=== PATIENT | male | born 1945 | race Caucasian/White ===

== ENCOUNTER 2018-04-25 10:38 | Inpatient (IN) ==
--- NOTE | 2018-04-25 11:04 | Emergency Department Note ---
Disposition Clinical Impression: Generalized weakness, Acute kidney injury, Hyperkalemia GI bleed Qualifiers: GI bleed type/associated pathology: unspecified gastrointestinal hemorrhage type Qualified Code(s): K92.2 - Gastrointestinal hemorrhage, unspecified Headache Qualifiers: Headache type: unspecified Headache chronicity pattern: unspecified pattern Anemia Qualifiers: Anemia type: unspecified type Qualified Code(s): D64.9 - Anemia, unspecified Disposition: Admitted As Inpatient Condition: Fair Time of Disposition: 14:04 General Adult HPI - General Chief complaint: ED Headache Stated complaint: YEPEZ everyday/AMS Time Seen by Provider: 04/25/18 10:45 Source: patient, family Mode of arrival: ambulatory Limitations: altered mental status Nursing Notes Reviewed: Yes Vital Signs Reviewed: Yes - History of Present Illness HPI Narrative: 72 year old man with hx significant for dm, afib not anticoagulated due to prior esophageal bleed, pacemaker, and hypothyroidism who presented to the ED complaining of headache and AMS. He fell 6-8 weeks ago and hit his head but was never evaluated. Over the last 3 weeks family has noticed a change in his mental status. says he has had memory trouble, saying things that sometimes do not make sense, and would take the wrong medications if she let him dose his own meds. Previous to this he was able to do more things independently. He himself complains of a bilateral YEPEZ that he described as band like pressure that is intermittent. He denies any fever/chills, diplopia, blurry vision, presyncope/syncope, chest pain, SOB, N/V, abdominal pain, muscle weakness, numbness/paresthesias, dysuria, increased urinary frequency, or urgency, but did endorse occasional dizziness, more when sitting to standing. He was very preoccupied during hx with showing me his R hand and arm where he has had previous injuries. Pt Subjective Complaint: headache Onset (ago): day(s) Location: head Radiation: non-radiation Pain Severity: moderate Pain Scale: 5 Quality: other (band like pressure ) Consistency: intermittent Improves with: other (time) Worsens with: nothing Associated symptoms: Reports: confusion Treatments Prior to Arrival: none - Related Data Home Medications Medication Instructions Recorded Confirmed Aspirin Enteric Coated [Aspirin EC] 81 mg PO DAILY 07/10/15 04/25/18 Furosemide [Lasix] 40 mg PO BID 07/10/15 04/25/18 Levothyroxine [Synthroid] 125 mcg PO 0630 07/10/15 04/25/18 Lisinopril [Zestril] 5 mg PO DAILY 07/10/15 04/25/18 Metformin HCl [Glucophage] 1,000 mg PO DAILY 07/10/15 04/25/18 Metoprolol [Lopressor] 25 mg PO BID 07/10/15 04/25/18 Potassium Chloride 20 meq PO BID 07/10/15 04/25/18 Spironolactone [Aldactone] 50 mg PO DAILY 07/10/15 04/25/18 Pantoprazole Sodium [Protonix] 40 mg PO DAILY 01/26/17 04/25/18 Albuterol Sulfate [Proair Hfa] 1 puff IH Q4H PRN 02/24/17 04/25/18 Cholecalciferol (D-3) [Vitamin D] 1,000 unit PO DAILY 02/24/17 04/25/18 Ferrous Sulfate [Iron] 325 mg PO BID 02/24/17 04/25/18 Sertraline [Zoloft] 50 mg PO DAILY 04/25/18 04/25/18 Allergies Allergy/AdvReac Type Severity Reaction Status Date / Time No Known Allergies Allergy Verified 04/25/18 10:43 All systems ED: reviewed and negative except as stated. Past Medical History - Past Medical History Medical history: Reports: arthritis, asthma, cirrhosis, CHF, COPD, coronary artery disease, DVT, diabetes, hypertension, liver disease, myocardial infarction, renal disease, thyroid disease Surgical history: Reports: cataract, herniorrhaphy, orthopedic, other, pacemaker /AICD Psychiatric history: Reports: no psych history - Social History Smoking Status: Never smoker Smokeless Tobacco Status: No Alcohol use: Reports: none Drug use: Reports: none Physical Exam - General Limitations: altered mental status General appearance: alert, in no apparent distress - Head Head exam: atraumatic, normocephalic, normal inspection - Eye Eye exam: Present: normal appearance, EOMI - ENT ENT exam: mucous membranes moist - Neck Neck exam: Present: normal inspection, trachea midline - Chest Chest inspection: Present: normal inspection, symmetric chest wall rise - Respiratory Respiratory exam: Present: normal lung sounds bilaterally - Cardiovascular Cardiovascular exam: Present: regular rate, irregular rhythm, normal heart sounds, +S1, +S2 - Abdominal Exam Abdominal exam: Present: soft, Non-Tender. Absent: distention, guarding, rebound, rigidity - Neurological Exam Neurological exam: Present: alert, CN II-XII intact. Absent: oriented X3 ( oriented to place but not person/time) - Psychiatric Psychiatric exam: Present: normal affect - Skin Skin exam: Present: warm, dry, intact, normal color Course Course Narrative: He presented to ED complaining of headache and reporting new memory problems over the last 3 weeks. His headache is in a pattern consistent with a tension YEPEZ being bilateral, band like pain that is intermittent. He has not taken anything otc and says he is not able to take nsaids due to prior esophageal bleed. He is alert but only oriented to place at this time. No other complaints with ROS besides the YEPEZ. Will work up potential infectious sources of AMS at this point and give a bolus IV fluids as he indicated dizziness in an orthostatic pattern and low end BP on arrival. Also will get CT head and neck as his previous fall/head injury was not evaluated and now with progressing AMS and memory deficits. 1130: ECG afib, rate 62, v rate 56-67, st depression v5,6, I and avl, prolonged qrs 135. 1300: Hgb 7.8, hct 24, plt 93, K 6, hco3 18, Cr 2.81, occult blood pos without gross blood on test. Will start 2 units PRBC's given his symptomatic anemia with pos occult blood, HONEY and iv protonix, give bicarb, kayexalate, and ca gluconate now with hyperkalemia, K 6. CT head without intracranial abnormality, CT neck multilevel DDD most severe at c6/c7. 1350: Spoke to hospitalist service about admission to hospital and they have accepted. Vital Signs Temperature 98.2 F 04/25/18 10:41 Pulse Rate 72 04/25/18 10:41 Respiratory Rate 18 04/25/18 10:41 Blood Pressure 109/63 04/25/18 10:41 O2 Sat by Pulse Oximetry 97 04/25/18 10:41 Temperature 98.2 F 04/25/18 14:37 Pulse Rate 71 04/25/18 14:37 Respiratory Rate 18 04/25/18 14:37 Blood Pressure 117/62 04/25/18 14:37 O2 Sat by Pulse Oximetry 97 04/25/18 14:37 Oxygen Delivery Oxygen Delivery Room Air Medical Decision Making - Medical Records Medical records reviewed: Yes I reviewed the patient's medical records. - Lab Data Lab results reviewed: Yes I reviewed the patient's lab results. Result diagrams: 04/25/18 10:54 04/25/18 10:54 Lab Results 04/25/18 04/25/18 04/25/18 Range/Units 10:54 10:54 10:54 WBC 6.0 (4.3-11.1) K/mcL RBC 2.37 L (4.19-5.50) M/mcL Hgb 7.8 L (12.9-16.9) g/dL Hct 24.0 L (37.5-50.1) % MCV 101.3 H (83.0-100.0) fL MCH 32.9 (28.0-33.3) pg MCHC 32.5 (31.6-35.5) g/dL RDW 14.6 H (11.5-14.5) % Plt Count 93 L (140-400) K/mcL MPV 9.5 (9.4-12.4) fL Immature Gran % 0.5 (0-4) % Seg Neutrophils % 77.4 % Lymphocytes % 12.9 % Monocytes % 8.3 % Eosinophils % 0.7 % Basophils % 0.2 % Neutrophils # 4.6 (1.6-8.9) K/mcL Lymphocytes # 0.8 (0.6-4.6) K/mcL Monocytes # 0.5 (0.0-1.3) K/mcL Eosinophils # 0.0 (0.0-0.6) K/mcL Basophils # 0.0 (0.0-0.2) K/mcL Immature Plt Fraction 1.7 (1.1-6.1) % PT 12.6 H (9.4-12.1) Seconds INR 1.1 APTT 28.0 (26.0-36.0) Seconds VBG pH (7.32-7.42) pH Units VBG pCO2 (41-51) mmHg VBG pO2 (25-50) mmHg VBG HCO3 (21-27) mEq/L Sodium 135 L (136-145) mEq/L Potassium 6.0 H (3.5-5.1) mEq/L Chloride 110 H (98-107) mEq/L Carbon Dioxide 18 L (23-29) mEq/L BUN 49 H (8-23) mg/dL Creatinine 2.81 H (0.70-1.30) mg/dL Est GFR ( Amer) 27 L (> 60) Est GFR (Non-Af Amer) 22 L (> 60) BUN/Creatinine Ratio 17 (6-26) Glucose 118 H (70-105) mg/dL Calculated Osmolality 294 (280-300) Lactic Acid (0.5-2.2) mmol/L Calcium 9.0 (8.6-10.3) mg/dL Total Bilirubin 0.9 (0.3-1.0) mg/dL Direct Bilirubin 0.2 (0.0-0.2) mg/dL Indirect Bilirubin 0.7 (0.0-1.2) mg/dL AST 25 (13-39) Units/L ALT 15 (7-52) Units/L Alkaline Phosphatase 61 (34-104) Units/L Troponin I < 0.03 (< 0.04) ng/mL Serum Total Protein 5.7 L (6.4-8.9) g/dL Albumin 3.3 L (3.5-5.7) g/dL Globulin 2.4 (2.4-3.5) g/dL Albumin/Globulin Ratio 1.4 (1.1-2.2) TSH 1.511 (0.340-5.600) mcIU/mL Urine Color (Yellow) Urine Clarity (Clear) Urine pH (5.0-8.0) pH Units Ur Specific [place] (1.010-1.025) Urine Protein (Neg-Trace) mg/dL Urine Glucose (UA) (Normal) mg/dL Urine Ketones (Negative) mg/dL Urine Blood (Negative) Urine Nitrite (Negative) Urine Bilirubin (Negative) Urine Urobilinogen (Normal) mg/dL Ur Leukocyte Esterase (Negative) Ur Culture Indicated? (NO) Stool Occult Bld Scrn (Negative) Urine Opiates Screen (Aaokjk=919) ng/mL Ur Barbiturates Screen (Nwrgua=798) ng/mL Ur Phencyclidine Scrn (Cutoff=25) ng/mL Ur Amphetamines Screen (Ppijhr=9374) ng/mL U Benzodiazepines Scrn (Zrwceh=220) ng/mL Urine Cocaine Screen (Cutoff= 300) ng/mL U Marijuana (THC) Screen (Cutoff = 50) ng/mL Ur Drug Screen Interp Ethyl Alcohol < 10 (Less than 10) mg/dL Blood Type Antibody Screen Crossmatch 04/25/18 04/25/18 04/25/18 Range/Units 11:41 12:25 12:50 WBC (4.3-11.1) K/mcL RBC (4.19-5.50) M/mcL Hgb (12.9-16.9) g/dL Hct (37.5-50.1) % MCV (83.0-100.0) fL MCH (28.0-33.3) pg MCHC (31.6-35.5) g/dL RDW (11.5-14.5) % Plt Count (140-400) K/mcL MPV (9.4-12.4) fL Immature Gran % (0-4) % Seg Neutrophils % % Lymphocytes % % Monocytes % % Eosinophils % % Basophils % % Neutrophils # (1.6-8.9) K/mcL Lymphocytes # (0.6-4.6) K/mcL Monocytes # (0.0-1.3) K/mcL Eosinophils # (0.0-0.6) K/mcL Basophils # (0.0-0.2) K/mcL Immature Plt Fraction (1.1-6.1) % PT (9.4-12.1) Seconds INR APTT (26.0-36.0) Seconds VBG pH (7.32-7.42) pH Units VBG pCO2 (41-51) mmHg VBG pO2 (25-50) mmHg VBG HCO3 (21-27) mEq/L Sodium (136-145) mEq/L Potassium (3.5-5.1) mEq/L Chloride (98-107) mEq/L Carbon Dioxide (23-29) mEq/L BUN (8-23) mg/dL Creatinine (0.70-1.30) mg/dL Est GFR ( Amer) (> 60) Est GFR (Non-Af Amer) (> 60) BUN/Creatinine Ratio (6-26) Glucose (70-105) mg/dL Calculated Osmolality (280-300) Lactic Acid 2.0 (0.5-2.2) mmol/L Calcium (8.6-10.3) mg/dL Total Bilirubin (0.3-1.0) mg/dL Direct Bilirubin (0.0-0.2) mg/dL Indirect Bilirubin (0.0-1.2) mg/dL AST (13-39) Units/L ALT (7-52) Units/L Alkaline Phosphatase (34-104) Units/L Troponin I (< 0.04) ng/mL Serum Total Protein (6.4-8.9) g/dL Albumin (3.5-5.7) g/dL Globulin (2.4-3.5) g/dL Albumin/Globulin Ratio (1.1-2.2) TSH (0.340-5.600) mcIU/mL Urine Color Yellow (Yellow) Urine Clarity Clear (Clear) Urine pH 5.5 (5.0-8.0) pH Units Ur Specific [place] 1.010 (1.010-1.025) Urine Protein Negative (Neg-Trace) mg/dL Urine Glucose (UA) Normal (Normal) mg/dL Urine Ketones Negative (Negative) mg/dL Urine Blood Negative (Negative) Urine Nitrite Negative (Negative) Urine Bilirubin Negative (Negative) Urine Urobilinogen Normal (Normal) mg/dL Ur Leukocyte Esterase Negative (Negative) Ur Culture Indicated? NO (NO) Stool Occult Bld Scrn (Negative) Urine Opiates Screen (Oczeht=687) ng/mL Ur Barbiturates Screen (Nwwnnc=214) ng/mL Ur Phencyclidine Scrn (Cutoff=25) ng/mL Ur Amphetamines Screen (Dxcfve=5389) ng/mL U Benzodiazepines Scrn (Hvducq=498) ng/mL Urine Cocaine Screen (Cutoff= 300) ng/mL U Marijuana (THC) Screen (Cutoff = 50) ng/mL Ur Drug Screen Interp Ethyl Alcohol (Less than 10) mg/dL Blood Type A POSITIVE Antibody Screen NEGATIVE Crossmatch See Detail 04/25/18 04/25/18 04/25/18 Range/Units 12:50 13:04 13:51 WBC (4.3-11.1) K/mcL RBC (4.19-5.50) M/mcL Hgb (12.9-16.9) g/dL Hct (37.5-50.1) % MCV (83.0-100.0) fL MCH (28.0-33.3) pg MCHC (31.6-35.5) g/dL RDW (11.5-14.5) % Plt Count (140-400) K/mcL MPV (9.4-12.4) fL Immature Gran % (0-4) % Seg Neutrophils % % Lymphocytes % % Monocytes % % Eosinophils % % Basophils % % Neutrophils # (1.6-8.9) K/mcL Lymphocytes # (0.6-4.6) K/mcL Monocytes # (0.0-1.3) K/mcL Eosinophils # (0.0-0.6) K/mcL Basophils # (0.0-0.2) K/mcL Immature Plt Fraction (1.1-6.1) % PT (9.4-12.1) Seconds INR APTT (26.0-36.0) Seconds VBG pH 7.31 L (7.32-7.42) pH Units VBG pCO2 38 L (41-51) mmHg VBG pO2 147 H (25-50) mmHg VBG HCO3 19 L (21-27) mEq/L Sodium (136-145) mEq/L Potassium (3.5-5.1) mEq/L Chloride (98-107) mEq/L Carbon Dioxide (23-29) mEq/L BUN (8-23) mg/dL Creatinine (0.70-1.30) mg/dL Est GFR ( Amer) (> 60) Est GFR (Non-Af Amer) (> 60) BUN/Creatinine Ratio (6-26) Glucose (70-105) mg/dL Calculated Osmolality (280-300) Lactic Acid (0.5-2.2) mmol/L Calcium (8.6-10.3) mg/dL Total Bilirubin (0.3-1.0) mg/dL Direct Bilirubin (0.0-0.2) mg/dL Indirect Bilirubin (0.0-1.2) mg/dL AST (13-39) Units/L ALT (7-52) Units/L Alkaline Phosphatase (34-104) Units/L Troponin I (< 0.04) ng/mL Serum Total Protein (6.4-8.9) g/dL Albumin (3.5-5.7) g/dL Globulin (2.4-3.5) g/dL Albumin/Globulin Ratio (1.1-2.2) TSH (0.340-5.600) mcIU/mL Urine Color (Yellow) Urine Clarity (Clear) Urine pH (5.0-8.0) pH Units Ur Specific [place] (1.010-1.025) Urine Protein (Neg-Trace) mg/dL Urine Glucose (UA) (Normal) mg/dL Urine Ketones (Negative) mg/dL Urine Blood (Negative) Urine Nitrite (Negative) Urine Bilirubin (Negative) Urine Urobilinogen (Normal) mg/dL Ur Leukocyte Esterase (Negative) Ur Culture Indicated? (NO) Stool Occult Bld Scrn Positive A (Negative) Urine Opiates Screen Negative (Vtzadc=855) ng/mL Ur Barbiturates Screen Negative (Jxdwfl=597) ng/mL Ur Phencyclidine Scrn Negative (Cutoff=25) ng/mL Ur Amphetamines Screen Negative (Gnikgo=4453) ng/mL U Benzodiazepines Scrn Negative (Bjotaz=075) ng/mL Urine Cocaine Screen Negative (Cutoff= 300) ng/mL U Marijuana (THC) Screen Negative (Cutoff = 50) ng/mL Ur Drug Screen Interp See Below Ethyl Alcohol (Less than 10) mg/dL Blood Type Antibody Screen Crossmatch Critical Care Time Critical Care Time: Yes Total Critical Care Time: 35 Attestation: The high probability of a clinically significant, sudden or life threatening deterioration of the [CV] system(s) required my full and direct attention, intervention and personal management. The aggregate critical care time was [35] minutes. This time is in addition to time spent performing reported procedures but includes the following: [x] Data Review and interpretation [x] Patient assessment and monitoring of vital signs [x] Documentation [x] Medication orders and management Attestation Statement - Attestation Attestation: I examined this patient and my medical decision-making was reviewed with the Resident Physician, Dr. Shannon. I agree with the documented findings, disposition and treatment plan as described except to the extent set forth below. Patient is a 72-year-old white male with numerous medical problems including CHF , COPD, diabetes, hypertension, prior esophageal varices with bleeding requiring transfusion, who presents to the emergency Department with complaints of generalized weakness over the past 4-5 days and gradually worsened mild generalized headache and "" not feeling well area. Patient denies any chest pain pressure or heaviness, no shortness of breath, dizziness or room spinning sensation, no syncopal episodes. Patient denies any bright red blood per rectum and states his stools are always dark because he is on iron supplement. Patient denies any abdominal pain. I agree with patient's physical exam findings as documented. Vital signs are stable. Patient's hemoglobin came back significantly lower than his baseline, we followed this up with a rectal exam which was negative for gross blood but positive Hemoccult. Patient does have a history of bleeding varices but at the time of this prior issues on blood thinners for his A. fib. These have since been discontinued. Patient denies any hemoptysis or hematemesis. Patient's been hemodynamically stable throughout. MCV is within normal limits. Patient' s also with acute kidney injury and hyperkalemia. EKG does not show any changes consistent with an elevated potassium but he was treated with calcium Kayexalate and bicarbonate due to his metabolic acidosis. Patient's imaging studies are within normal limits. Patient is been typed and screened and blood transfusion is being initiated following informed consent. Patient has remained hemodynamically stable and in no acute distress. Patient will be admitted for blood loss anemia possible GI bleed, acute kidney injury and hyperkalemia. Hospitalist has been notified and accepted the patient for admission for further evaluation and management.
[2018-04-25] MEDS ORDERED: 0.9 % Sodium Chloride 500 ML IVC ONE (11:19)
[2018-04-25 11:29] LABS: Hemoglobin 7.8 g/dL (12.9-16.9)
[2018-04-25 11:31] LABS: Basophils % 0.2 %; Eosinophils % 0.7 %; Immature Granulocytes % 0.5 % (0-4); Immature Platelets 1.7 % (1.1-6.1); Lymphocytes # 0.8 K/mcL (0.6-4.6); Lymphocytes % 12.9 %; Mean Corpuscular HGB Conc 32.5 g/dL (31.6-35.5); Mean Corpuscular Hemoglobin 32.9 pg (28.0-33.3); Mean Corpuscular Volume 101.3 fL (83.0-100.0); Mean Platelet Volume 9.5 fL (9.4-12.4); Monocytes # 0.5 K/mcL (0.0-1.3); Monocytes % 8.3 %; Red Blood Count 2.37 M/mcL (4.19-5.50); Red Cell Distribution Width 14.6 % (11.5-14.5); Segmented Neutrophils % 77.4 %
[2018-04-25 11:36] LABS: INR 1.1; Prothrombin Time 12.6 Seconds (9.4-12.1)
[2018-04-25 11:40] LABS: Neutrophils # 4.6 K/mcL (1.6-8.9); Platelet Count 93 K/mcL (140-400)
[2018-04-25 11:58] LABS: Troponin I < 0.03 ng/mL (< 0.04)
[2018-04-25 12:10] LABS: Alanine Aminotransferase 15 Units/L (7-52); Albumin 3.3 g/dL (3.5-5.7); Albumin/Globulin Ratio 1.4 (1.1-2.2); Alkaline Phosphatase 61 Units/L (34-104); Aspartate Amino Transferase 25 Units/L (13-39); BUN/Creatinine Ratio 17 (6-26); Bilirubin,Direct 0.2 mg/dL (0.0-0.2); Bilirubin,Indirect 0.7 mg/dL (0.0-1.2); Bilirubin,Total 0.9 mg/dL (0.3-1.0); Blood Urea Nitrogen 49 mg/dL (8-23); Carbon Dioxide 18 mEq/L (23-29); Chloride 110 mEq/L (98-107); Ethanol < 10 mg/dL (Less than 10); Globulin 2.4 g/dL (2.4-3.5); Glucose 118 mg/dL (70-105); Osmolality,Calculated 294 (280-300); Sodium 135 mEq/L (136-145); Total Protein 5.7 g/dL (6.4-8.9); eGFR For Non-African Americans 22 (> 60)
[2018-04-25 12:11] LABS: Thyroid Stimulating Hormone 1.511 mcIU/mL (0.340-5.600)
[2018-04-25] MEDS ORDERED: Sodium Bicarbonate 50 MEQ/50 ML VIAL IVP ONE (12:28)
[2018-04-25 12:59] LABS: Bilirubin,Urine Negative (Negative); Blood,Urine Negative (Negative); Clarity,Urine Clear (Clear); Color,Urine Yellow (Yellow); Glucose,Urine (UA) Normal (Normal); Ketones,Urine Negative (Negative); Leukocyte Esterase,Urine Negative (Negative); Nitrite,Urine Negative (Negative); PH,Urine 5.5 pH Units (5.0-8.0); Protein,Urine Negative (Neg-Trace); Urobilinogen,Urine Normal (Normal)
[2018-04-25 13:09] LABS: Amphetamine Screen,Urine Negative ng/mL (Cutoff=1000); Barbiturate Screen,Urine Negative ng/mL (Cutoff=200); Benzodiazepines Screen,Urine Negative ng/mL (Cutoff=200); Cannabinoid Screen,Urine Negative ng/mL (Cutoff = 50); Cocaine Screen,Urine Negative ng/mL (Cutoff= 300); Opiate Screen,Urine Negative ng/mL (Cutoff=300); Phencyclidine Screen,Urine Negative ng/mL (Cutoff=25)
[2018-04-25] MEDS ORDERED: Pantoprazole 40 MG VIAL IVP ONE (13:18)
[2018-04-25 13:54] LABS: VBG HCO3 19 mEq/L (21-27); VBG PCO2 38 mmHg (41-51); VBG PH 7.31 pH Units (7.32-7.42); VBG PO2 147 mmHg (25-50)
[2018-04-25] MEDS ORDERED: 0.9 % Sodium Chloride 250 ML ONE ×2 (14:19→17:03)
[2018-04-25] MEDS ORDERED: Naloxone 0.4 MG/ML INJ IVP PRN (15:09)
--- NOTE | 2018-04-25 16:51 | Internal Med History&Physical ---
Date of Encounter: 04/25/18 Time of Encounter: 16:45 Internal Medicine - H&P: HPI Chief complaint: headache Admitted From: Home Plans for Post Hospital Care: Home History of present illness: Mr. Díaz is a 72 year old male with past medical history of diastolic CHF, COPD, diabetes, hypertension, A. fib not on anticoagulation, pacemaker placement , hypothyroidism, nonalcoholic cirrhosis, diabetic neuropathy who came in with complain of headache ongoing past 2-3 days. Most of the history was obtained through was at bedside and reliable as well as review of previous charts and ER chart. He also has associated weakness and not feeling well. Denies any other complain then headache and weakness. Headache is bandlike around his head. Denies any weakness numbness or tingling. He has difficulty hearing at baseline. Denies any vision changes. He had history of fall about a month ago which was not evaluated. Denies any fevers, chills, lightheadedness, palpitations, bowel or bladder complaints. He has been urinating as usual. Denies any problems passing urine. He is on iron supplementation and has black stool associated with that he usually. Denies any blood in stool. Denies any chest pain, shortness of breathor abdominal pain. He has chronic long-standing back pain which is at baseline. Patient's mentioned that 5 bands in his esophagus. He had upper endoscopy in March. His last colonoscopy was about 2 years ago. On initial evaluation in ER head CT was negative. Chest x-ray was unremarkable. Cervical spine x-ray showed degenerative changes. Lab was significant for anemia of 7.8 from baseline of 10.4, platelet count of 93, potassium of 6 urine 49 creatinine of 2.8. INR within normal range. His stool occult blood was positive. UA was unremarkable. U tox was unremarkable. EKG without any signs of hyperkalemia. Patient received Kayexalate, 500 mL normal saline, bicarbonate, calcium gluconate and pantoprazole. Was also started on PRBC transfusion. Patient was admitted under hospitalist service for further management. On interview patient is alert awake and oriented. Difficulty with hearing however answering questions appropriately with the help of his . Following commands. Only complaint he had was headache. Past Med Surg Social Fam HX - Past Medical History Medical history: arthritis, asthma, cirrhosis, CHF, COPD, coronary artery disease, DVT, diabetes, hypertension, liver disease, myocardial infarction, renal disease, thyroid disease Additional medical history: esophageal varices, sleep apnea, anemia, pacemaker, rheumatic fever Psychiatric history: no psych history - Past Surgical History Surgical History: cataract, herniorrhaphy, orthopedic, other, pacemaker/AICD Additional surgical history: egd with banding, finger amputations - Social History Smoking Status: Never smoker Smokeless Tobacco Status: No Alcohol use: none Drug use: none Internal Medicine - H&P: Meds Aspirin Enteric Coated [Aspirin EC] 81 mg PO DAILY 07/10/15 [History] Furosemide [Lasix] 40 mg PO BID 07/10/15 [History] Levothyroxine [Synthroid] 125 mcg PO 0630 07/10/15 [History] Lisinopril [Zestril] 5 mg PO DAILY 07/10/15 [History] Metformin HCl [Glucophage] 1,000 mg PO DAILY 07/10/15 [History] Metoprolol [Lopressor] 25 mg PO BID 07/10/15 [History] Potassium Chloride 20 meq PO BID 07/10/15 [History] Spironolactone [Aldactone] 50 mg PO DAILY 07/10/15 [History] Pantoprazole Sodium [Protonix] 40 mg PO DAILY 01/26/17 [History] Albuterol Sulfate [Proair Hfa] 1 puff IH Q4H PRN 02/24/17 [History] Cholecalciferol (D-3) [Vitamin D] 1,000 unit PO DAILY 02/24/17 [History] Ferrous Sulfate [Iron] 325 mg PO BID 02/24/17 [History] Sertraline [Zoloft] 50 mg PO DAILY 04/25/18 [History] 3 Allergy/AdvReac Type Severity Reaction Status Date / Time No Known Allergies Allergy Verified 04/25/18 10:43 All Systems PM: A 10-system review of systems was performed and is negative for pertinent findings except as documented above in the HPI. - Constitutional Vitals: Temp Pulse Resp BP Pulse Ox 97.9 F 65 19 115/72 99 04/25/18 16:03 04/25/18 16:03 04/25/18 16:03 04/25/18 16:03 04/25/18 16:03 General appearance: Present: A&O X 3, no acute distress, obese Exam: Constitutional: Vitals as noted. Conversant. No Apparent Distress. Obese Eyes exam: Sclera white, conjunctiva clear, no lid lag, PEARLA. Pale conjunctiva. ENT exam: Decreased hearing. Dry mucus membranes. No JVD, no cervical lymphadenopathy. no thyromegaly or mass. Respiratory exam: Clear to auscultation bilaterally. No accessory muscle use, rales, rhonchi or wheezes Cardiovascular exam: irregular rhythm, +S1, +S2. systolic murmur present, no gallop, rubs. No chest wall tenderness GI/Abdominal exam: Soft, Non-tender, Non-distended, normal bowel sounds, soft, no peritoneal signs. no orgenomegaly or mass appreciated. no hernia. Musculoskeletal exam: full ROM, no atrophy or deformity noted. no edema or cyanosis, warm, pulses palpable and symmetrical in UE/LE. no calf tenderness. Neurological exam: AO X3, CN II-XII grossly intact, grossly normal motor and sensory exam. Skin exam: No skin rash, lesions or ulcers noted. no purpura or ecchymosis. Internal Med - H&P Results - Labs CBC & Chem 7: 04/25/18 10:54 04/25/18 10:54 - Assessment and plan (1) GI bleed Current Visit: Yes Status: Acute Assessment and plan: GI bleed - likely upper given history of esophageal varices. However had upper endoscopy on 04/04 and likely banding with Dr. Villalobos - Patient currently getting 2 units of PRBC - We will keep patient nothing by mouth. - Continue IV Protonix 40 twice a day. - GI service consult. Hold home aspirin. Qualifiers: GI bleed type/associated pathology: unspecified gastrointestinal hemorrhage type Qualified Code(s): K92.2 - Gastrointestinal hemorrhage, unspecified (2) Acute kidney injury Current Visit: Yes Status: Acute Assessment and plan: HONEY on CKD - Baseline creatinine of 1.5-1.9. Currently 2.8. BUN also elevated at 49 from 27. - Likely prerenal. ATN also possibility given GI bleed. Vitals are stable. - We will obtain bladder scan, renal ultrasound, urine studies including urine urea, urine sodium, urine osmolality and serum osmolality. UA unremarkable - Neohrology consulted. (3) Anemia Current Visit: Yes Status: Acute Assessment and plan: Likely from UGI bleed along cirrhosis and CKD - Management as above. Qualifiers: Anemia type: unspecified type Qualified Code(s): D64.9 - Anemia, unspecified (4) Generalized weakness Current Visit: Yes Status: Acute (5) Headache Current Visit: Yes Status: Acute Assessment and plan: - Head CT unremarkable - Etiology likely multifactorial - No focal deficit. will monitor for now. Qualifiers: Headache type: unspecified Headache chronicity pattern: unspecified pattern Qualified Code(s): R51 - Headache (6) Hyperkalemia Current Visit: Yes Status: Acute Assessment and plan: Likely from HONEY on CKD - EKG without hyperkalemic changes. - Received Kayexalate, 500 mL normal saline, bicarbonate, calcium gluconate in ER. Also getting PRBC. - f/u BMP now. If not improved will give 20 mg lasix along with albumin for diuresing to decrease potassium. - If not improving with above measures and develops EKG changes may need dialysis. (7) Cirrhosis Current Visit: No Status: Chronic Assessment and plan: - We will have to hold home spironolactone and Lasix given HONEY - Hold home potassium chloride given hyperkalemia. Qualifiers: Hepatic cirrhosis type: unspecified hepatic cirrhosis Ascites presence: unspecified Qualified Code(s): K74.60 - Unspecified cirrhosis of liver (8) HTN (hypertension) Current Visit: Yes Status: Acute Assessment and plan: - Hold home lisinopril and spironolactone given KI for now. - Currently stable. monitor for now. Qualifiers: Qualified Code(s): I10 - Essential (primary) hypertension (9) Diabetes Current Visit: Yes Status: Acute Assessment and plan: - Hold home metformin given HONEY - Sliding scale insulin with Accu-Cheks. Low intensity will be used given renal failure Qualifiers: Diabetes mellitus type: type 2 Qualified Code(s): E11.9 - Type 2 diabetes mellitus without complications; Z79.4 - nursing home (current) use of insulin (10) Hypothyroidism Current Visit: Yes Status: Acute Assessment and plan: - Continue home levothyroxine Qualifiers: Qualified Code(s): E03.9 - Hypothyroidism, unspecified (11) DVT prophylaxis Current Visit: Yes Status: Acute Assessment and plan: EPCD - Time Spent With Patient Total time spent is greater than 50% in coordination of care (as documented) at patient's floor/unit and/or counseling patient:
[2018-04-25] MEDS: Pantoprazole 40 MG VIAL IVP SCH (17:47)
[2018-04-25 22:30] LABS: Calcium 8.8 mg/dL (8.6-10.3); Potassium 4.7 mEq/L (3.5-5.1)
[2018-04-25 23:15] LABS: Sodium, Urine 83.9 mEq/L
[2018-04-25] MEDS ORDERED: 0.9 % Sodium Chloride 250 ML IVC SCH (23:45)
[2018-04-26 05:10] LABS: Basophils % 0.7 %; Immature Granulocytes % 0.3 % (0-4)
[2018-04-26 05:12] LABS: Eosinophils # 0.1 K/mcL (0.0-0.6); Eosinophils % 2.6 %; Hematocrit 26.8 % (37.5-50.1); Hemoglobin 8.7 g/dL (12.9-16.9); Immature Platelets 0.9 % (1.1-6.1); Lymphocytes # 0.7 K/mcL (0.6-4.6); Lymphocytes % 24.5 %; Mean Corpuscular HGB Conc 32.5 g/dL (31.6-35.5); Mean Corpuscular Hemoglobin 31.1 pg (28.0-33.3); Mean Corpuscular Volume 95.7 fL (83.0-100.0); Mean Platelet Volume 9.9 fL (9.4-12.4); Monocytes # 0.4 K/mcL (0.0-1.3); Monocytes % 11.9 %; Neutrophils # 1.8 K/mcL (1.6-8.9); Red Cell Distribution Width 18.3 % (11.5-14.5)
[2018-04-26 05:17] LABS: Albumin/Globulin Ratio 1.4 (1.1-2.2); Bilirubin,Total 1.4 mg/dL (0.3-1.0); Calcium 8.9 mg/dL (8.6-10.3); Globulin 2.1 g/dL (2.4-3.5); Platelet Count 60 K/mcL (140-400); Potassium 4.3 mEq/L (3.5-5.1); Total Protein 5.1 g/dL (6.4-8.9)
[2018-04-26 06:35] LABS: Platelet Estimate Decreased (Normal)
[2018-04-26 06:36] LABS: Anisocytosis 1+ (Not Present)
[2018-04-26] MEDS: Pantoprazole 40 MG VIAL IVP SCH ×2 (06:46→17:07)
[2018-04-26] MEDS ORDERED: Insulin LISPRO 300 UNITS/3 ML VIAL SQ SCH (07:30)
[2018-04-26] MEDS ORDERED: *HR* Dextrose 50 % in Water (Syg) 50 ML SYRINGE IVP PRN (07:57)
[2018-04-26] MEDS ORDERED: Dextrose Gel 15 GM/37.5 ML TUBE PO PRN ×2 (07:57)
[2018-04-26] MEDS ORDERED: D5% in Water 1,000 ML IVC PRN (07:57)
[2018-04-26] MEDS: Cholecalciferol (D-3) 1,000 UNIT TABLET PO SCH (08:54)
--- NOTE | 2018-04-26 08:57 | Electrocardiograph Report ---
[facility] Test Date: 2018-04-25 Pat Name: Leo Díaz Department: EXAM16 Room: 2A43 Gender: M Ice Skater: : 1945 Requested By: Hamilton Crockett Order Number: [id number] Reading MD: Randy Wooten Measurements Intervals [place] Rate: 62 P: SD: QRS: -34 QRSD: 135 T: 268 QT: 404 QTc: 411 Interpretive Statements Atrial fibrillation IVCD, consider atypical RBBB Nonspecific repol abnormality, lateral leads Electronically Signed On 04-26-2018 8:55:56 EDT by Randy Wooten
--- NOTE | 2018-04-26 09:16 | Internal Med Progress Note ---
Hospitalist Progress Note - Encounter Date of Encounter: 04/26/18 Time of Encounter: 09:14 - Subjective Interval History: Patient seen and examined this morning. No acute overnight events. No Bloody BM. Finished 2 PRBC. Occasionally incoherant but also has significant difficult hearing. Has a sitter due to some owning. About 400 cc urine output. Low BP overnight. - Exam Vitals: Temp Pulse Resp BP Pulse Ox 98.8 F 59 18 82/49 96 04/26/18 07:23 04/26/18 07:23 04/26/18 07:23 04/26/18 07:23 04/26/18 07:23 Exam: Constitutional: Vitals as noted. Conversant. Occasionally incoherant. No Apparent Distress. Obese Eyes exam: Sclera mildly icteric, conjunctiva clear, no lid lag, PEARLA. Pale conjunctiva. ENT exam: Decreased hearing. Dry mucus membranes. No JVD, no cervical lymphadenopathy. no thyromegaly or mass. Respiratory exam: Clear to auscultation bilaterally. No accessory muscle use, rales, rhonchi or wheezes Cardiovascular exam: irregular rhythm, +S1, +S2. systolic murmur present, no gallop, rubs. No chest wall tenderness GI/Abdominal exam: Soft, Non-tender, Non-distended, normal bowel sounds, soft, no peritoneal signs. no orgenomegaly or mass appreciated. no hernia. Musculoskeletal exam: full ROM, no atrophy or deformity noted. no edema or cyanosis, warm, pulses palpable and symmetrical in UE/LE. no calf tenderness. Neurological exam: AO X1, CN II-XII grossly intact, grossly normal motor and sensory exam. Skin exam: pigmented skin rash on lower extremity , no lesions or ulcers noted. no purpura or ecchymosis. - Assessment and Plan (1) GI bleed Current Visit: Yes Status: Acute (2) Acute kidney injury Current Visit: Yes Status: Acute (3) Anemia Current Visit: Yes Status: Acute (4) Generalized weakness Current Visit: Yes Status: Acute (5) Headache Current Visit: Yes Status: Acute (6) Hyperkalemia Current Visit: Yes Status: Acute (7) Cirrhosis Current Visit: No Status: Chronic (8) HTN (hypertension) Current Visit: Yes Status: Acute (9) Diabetes Current Visit: Yes Status: Acute (10) Hypothyroidism Current Visit: Yes Status: Acute (11) DVT prophylaxis Current Visit: Yes Status: Acute - Summary of Assessment and Plan Summary of Assessment and Plan: GI bleed - likely upper given history of esophageal varices. However had upper endoscopy on 04/04 and likely banding with Dr. Villalobos - s/p 2 units of PRBC. Hb lower than expected today with 2 PRBC. No cammie blood in stool. - We will keep patient nothing by mouth. - Continue IV Protonix 40 twice a day. - GI service consult. Hold home aspirin. HONEY on CKD - Baseline creatinine of 1.5-1.9. - renal ultrasound Unremarkable for Hydronephrosis or stones. Increased post void residual. Insert key. - f/u urine studies. UA unremarkable - Neohrology consulted. Anemia - Likely from UGI bleed along cirrhosis and CKD - Management as above. Headache - now minimal - Head CT unremarkable - Etiology likely multifactorial - No focal deficit. will monitor for now. Hyperkalemia - Likely from HONEY on CKD and medications. - EKG without hyperkalemic changes. - Received Kayexalate, 500 mL normal saline, bicarbonate, calcium gluconate in ER. Also getting PRBC. - now resolved. Cirrhosis - We will have to hold home spironolactone and Lasix given HONEY - Hold home potassium chloride given hyperkalemia. HTN - Hold home lisinopril and spironolactone given HONEY and hyperkalemia. - Low BP overnight. Will give 500 cc cautiously. - ECHO on 03/07/17 with EF of 55-60 and diastolic dysfunction. Diabetes - Hold home metformin given HONEY - Sliding scale insulin with Accu-Cheks. Low intensity will be used given renal failure Hypothyroidism - Continue home levothyroxine DVT prophylaxis - EPCD - Time Spent with Patient Total time spent is greater than 50% in coordination of care (as documented) at patient's floor/unit and/or counseling patient: Internal Medicine: Result - Labs CBC & Chem 7: 04/26/18 04:40 04/26/18 04:40 Labs: Short CBC 04/26/18 Range/Units 04:40 WBC 3.0 L (4.3-11.1) K/mcL Hgb 8.7 L (12.9-16.9) g/dL Hct 26.8 L (37.5-50.1) % Plt Count 60 L (140-400) K/mcL Neutrophils # 1.8 (1.6-8.9) K/mcL BMP 04/25/18 04/26/18 21:57 04:40 Sodium 139 141 Potassium 4.7 4.3 Chloride 113 H 112 H Carbon Dioxide 19 L 22 L BUN 48 H 45 H Creatinine 2.49 H 2.30 H Glucose 106 H 102 Calcium 8.8 8.9 Liver Function 04/26/18 Range/Units 04:40 Total Bilirubin 1.4 H (0.3-1.0) mg/dL AST 25 (13-39) Units/L ALT 13 (7-52) Units/L Alkaline Phosphatase 56 (34-104) Units/L Albumin 3.0 L (3.5-5.7) g/dL - ABG Interpretation ABG results: PT/INR, D-dimer PT 12.6 Seconds (9.4-12.1) H 04/25/18 10:54 - Impressions Impressions Retroperitoneum Ultrasound 04/25/18 20:00 IMPRESSION: Unremarkable ultrasound of the kidneys Increased postvoid bladder volume suggestive of urinary retention. D/ / Aubrey Addison MD / Aubrey Addison MD Interpreting Provider: Aubrey Addison MD Consult Discharge Plan - Plan Referrals: Jose Real DO [Primary Care Provider] - (1) GI bleed Qualifiers: GI bleed type/associated pathology: unspecified gastrointestinal hemorrhage type Qualified Code(s): K92.2 - Gastrointestinal hemorrhage, unspecified (3) Anemia Qualifiers: Anemia type: unspecified type Qualified Code(s): D64.9 - Anemia, unspecified (5) Headache Qualifiers: Headache type: unspecified Headache chronicity pattern: unspecified pattern (7) Cirrhosis Qualifiers: Hepatic cirrhosis type: unspecified hepatic cirrhosis Ascites presence: unspecified Qualified Code(s): K74.60 - Unspecified cirrhosis of liver (9) Diabetes Qualifiers: Diabetes mellitus type: type 2
[2018-04-26] MEDS ORDERED: 0.9 % Sodium Chloride 500 ML IVC ONE (09:48)
--- NOTE | 2018-04-26 11:04 | Gastroenterology Consult Note ---
<GalavizMarquis gee Kolby - Last Filed: 04/26/18 11:01> Date of Encounter: 04/26/18 Time of Encounter: 10:00 - Assessment and plan (1) Cirrhosis Current Visit: No Status: Chronic Assessment and plan: MELD-Na 17, Child-Funes class B. Last AFP 3 on 03/15/2018. Check Liver US. Lifestyle Changes: 1. Total abstinence from alcohol including social drinking. 2. No smoking. 3. Gradual loss of weight. 4. Drink at least 3 cups of coffee due to its antioxidant effects in the liver, it reduces risk of HCC and advance fibrosis. 5. If needed, use less than 2 g/day of Tylenol (in divided doses). 6. Vaccination for Hep A, B, Pneumococcus if not already received and yearly influenza vaccination by PCP. 7. Avoid NSAIDS as can cause kidney damage. 8. Avoid benzodiazepines and other sedatives such as anti-histamines, narcotics etc. as can cause encephalopathy or confusion. 9. Take a late carbohydrate meal supplement as it reduces glucose production from protein breakdown and thus improves nutrition. 10. In cirrhosis, statins are safe to use and also improve portal hypertension and decrease risk of HCC. 11. Screening: o Hepatocellular cancer screening: US of liver and AFP every 6 months Qualifiers: Hepatic cirrhosis type: unspecified hepatic cirrhosis Ascites presence: unspecified Qualified Code(s): K74.60 - Unspecified cirrhosis of liver (2) GI bleed Current Visit: Yes Status: Acute Assessment and plan: Last EGD 04/04 with esophageal varices with 5 bands placed. Gastric antral vascular ectasia also noted. Plan for EGD today for possible embolization of GAVE. Keep NPO. Qualifiers: GI bleed type/associated pathology: unspecified gastrointestinal hemorrhage type Qualified Code(s): K92.2 - Gastrointestinal hemorrhage, unspecified (3) Anemia Current Visit: Yes Status: Acute Assessment and plan: Hgb 7.8 on admission. Continue to monitor CBC and transfuse PRBC as needed. Plan for EGD today. Qualifiers: Anemia type: unspecified type Qualified Code(s): D64.9 - Anemia, unspecified - Time Spent With Patient Total time spent is greater than 50% in coordination of care (as documented) at patient's floor/unit and/or counseling patient: GI History of Present Illness - Data of Consult Patient: known to practice within the last 3 years Consult date: 04/26/18 Requesting Physician: Yrn Biswas MD - Consult Narrative Reason for consult: UGI bleed History of present illness: Mr. Díaz is a 72 year old male with PMHx of arthritis, asthma, cirrhosis, CHF , COPD, CAD, DVT, DM, HTN, TN who presented with complaints of headache and weakness that started 2-3 days prior to admission. He denies fever, chills, chest pain, shortness of breath, abdominal pain, nausea, vomiting, melena, hematochezia. Hgb on admission was 7.8, with baseline 10-11. Fecal occult blood test positive. We were consulted to evaluate his anemia and possible upper GI bleed. Procedures: EGD 04/04/2018 Dr. Villalobos: Grade II esophageal varices, five bands placed, gastric antral vascular ectasia (GAVE). EGD 05/12/2017 Dr. Villalobos: Grade II esophageal varices, five bands placed, portal hypertensive gastropathy, GAVE, three gastric polyps. EGD 06/14/2016 Dr. Villalobos: Grade II esophageal varices, three bands placed, few gastric polyps, peptic duodenitis. Colonoscopy 03/18/2015 Dr. Villalobos: Internal hemorrhoids, otherwise normal. EGD 03/18/2015 Dr. Villalobos: Grade II esophageal varices, four bands placed, portal hypertensive gastropathy. NSAIDs: ASA Anticoagulation: None Past Med Surg Social Fam HX - Past Medical History Medical history: arthritis, asthma, cirrhosis, CHF, COPD, coronary artery disease, DVT, diabetes, hypertension, liver disease, myocardial infarction, renal disease, thyroid disease Additional medical history: esophageal varices, sleep apnea, anemia, pacemaker, rheumatic fever Psychiatric history: no psych history - Past Surgical History Surgical History: cataract, herniorrhaphy, orthopedic, other, pacemaker/AICD Additional surgical history: egd with banding, finger amputations - Social History Smoking Status: Never smoker Smokeless Tobacco Status: No Alcohol use: none Drug use: none - Gastrointestinal Gastrointestinal: Present: as per HPI - Constitutional Constitutional: as per HPI - EENT Eyes: as per HPI Ears: Present: as per HPI Nose, mouth and throat: Present: as per HPI - Cardiovascular Cardiovascular ROS: Present: as per HPI - Respiratory Respiratory IM: Present: as per HPI - Genitourinary Genitourinary: Absent: change in color, Urinary frequency - Neurological ROS Neurological GI: Present: as per HPI - Hematologic/Lymphatic Hematologic/Lymphatic pediatric: Present: as per HPI - Musculoskeletal Musculoskeletal ROS GI: Present: as per HPI - Integumentary Integumentary GI: Present: as per HPI - Psychiatric ROS Psychiatric GI: Present: as per HPI - Endocrine Endocrine IM: Present: as per HPI - Constitutional Vitals: Temp Pulse Resp BP Pulse Ox 98.8 F 59 18 82/49 96 04/26/18 07:23 04/26/18 07:23 04/26/18 07:23 04/26/18 07:23 04/26/18 07:23 General appearance: Present: cooperative, A&O X 3, no acute distress, answers questions appropriately Exam: Hard of hearing - Head Head exam: Present: atraumatic, normocephalic - Eye Eye exam: Present: normal appearance, sclera anicteric - ENT ENT exam: Present: mucous membranes moist - Neck Neck exam general surgery: Present: normal inspection, trachea midline - Respiratory Respiratory exam: Present: decreased breath sounds, CTAB. Absent: rales, rhonchi - Cardiovascular Cardiovascular exam: Present: RRR, +S1, +S2 - GI/Abdominal GI/Abdominal exam: Present: soft, no peritoneal signs. Absent: distended, firm , guarding, tenderness - Rectal Rectal exam: Present: deferred - Extremities Exam Extremities exam: Present: warm - Neurological Exam Neurological exam: Present: no focal deficits - Psychiatric Psychiatric exam: Present: normal affect, normal mood - Skin Skin exam: Present: dry, intact, normal color, warm Results - Labs CBC & Chem 7: 04/26/18 04:40 04/26/18 04:40 Labs: Last Result Calcium 8.9 mg/dL (8.6-10.3) 04/26/18 04:40 Troponin I < 0.03 ng/mL (< 0.04) 04/25/18 10:54 Urine Opiates Screen Negative ng/mL (Sjisfs=477) 04/25/18 12:50 Entire Visit Hgb 8.7 g/dL (12.9-16.9) L 04/26/18 04:40 Hct 26.8 % (37.5-50.1) L 04/26/18 04:40 PT 12.6 Seconds (9.4-12.1) H 04/25/18 10:54 Total Bilirubin 1.4 mg/dL (0.3-1.0) H 04/26/18 04:40 AST 25 Units/L (13-39) 04/26/18 04:40 ALT 13 Units/L (7-52) 04/26/18 04:40 - ABG ABG results: PT/INR, D-dimer PT 12.6 Seconds (9.4-12.1) H 04/25/18 10:54 - Impressions Impressions Retroperitoneum Ultrasound 04/25/18 20:00 IMPRESSION: Unremarkable ultrasound of the kidneys Increased postvoid bladder volume suggestive of urinary retention. D/ / Aubrey Addison MD / Aubrey Addison MD Interpreting Provider: Aubrey Addison MD Consult Discharge Plan - Plan Referrals: Jose Real DO [Primary Care Provider] - <Joya Villalobos - Last Filed: 04/26/18 17:54> Date of Encounter: 04/26/18 Time of Encounter: 14:40 - Time Spent With Patient Total time spent is greater than 50% in coordination of care (as documented) at patient's floor/unit and/or counseling patient: GI History of Present Illness - Data of Consult Requesting Physician: Yrn Biswas MD - Consult Narrative History of present illness: Mr. Díaz is a 72 year old male - Constitutional Vitals: Temp Pulse Resp BP Pulse Ox 97.9 F 73 18 93/51 97 04/26/18 16:07 04/26/18 16:07 04/26/18 16:07 04/26/18 16:07 04/26/18 16:07 Results - Labs CBC & Chem 7: 04/26/18 04:40 04/26/18 04:40 Labs: Last Result Calcium 8.9 mg/dL (8.6-10.3) 04/26/18 04:40 Troponin I < 0.03 ng/mL (< 0.04) 04/25/18 10:54 Urine Opiates Screen Negative ng/mL (Xmffht=829) 04/25/18 12:50 Entire Visit Hgb 8.7 g/dL (12.9-16.9) L 04/26/18 04:40 Hct 26.8 % (37.5-50.1) L 04/26/18 04:40 PT 12.6 Seconds (9.4-12.1) H 04/25/18 10:54 Total Bilirubin 1.4 mg/dL (0.3-1.0) H 04/26/18 04:40 AST 25 Units/L (13-39) 04/26/18 04:40 ALT 13 Units/L (7-52) 04/26/18 04:40 - ABG ABG results: PT/INR, D-dimer PT 12.6 Seconds (9.4-12.1) H 04/25/18 10:54 - Impressions Impressions Retroperitoneum Ultrasound 04/25/18 20:00 IMPRESSION: Unremarkable ultrasound of the kidneys Increased postvoid bladder volume suggestive of urinary retention. D/ / Aubrey Addison MD / Aubrey Addison MD Interpreting Provider: Aubrey Addison MD - Attending Attestation I have personally performed a face to face evaluation on this patient. I have reviewed and agree with the care plan. History and Exam by me shows: Pt seen. Denies any blood in the stool. On examination; mild confused. Assessment: Patient with cirrhosis with mild encephalopathy and now anemia. Does has a history of esophageal varices and has been banded. Also has Gave syndrome of the stomach. Most probably patient anemia due to bleeding from his stomach Gave. Rec: EGD today with possible APC of the gave. Also start the patient on low- dose lactulose for his encephalopathy
[2018-04-26 12:38] LABS: Uric Acid 12.5 mg/dL (2.3-7.6)
--- NOTE | 2018-04-26 13:06 | Nephrology Consult Note ---
<Korin Carrillo - Last Filed: 04/26/18 13:03> Date of Encounter: 04/26/18 Time of Encounter: 13:03 Assessment and Plan (1) Acute kidney injury Status: Acute Baseline GFR appears to be 30-40. GFR today is 28. Strict I/O Avoid nephrotoxins and renal dose all medications. (2) Cirrhosis Status: Chronic Per GI. Qualifiers: Hepatic cirrhosis type: unspecified hepatic cirrhosis Ascites presence: unspecified Qualified Code(s): K74.60 - Unspecified cirrhosis of liver (3) GI bleed Status: Acute Per GI. On Protonix gtt. Qualifiers: GI bleed type/associated pathology: unspecified gastrointestinal hemorrhage type Qualified Code(s): K92.2 - Gastrointestinal hemorrhage, unspecified History of Present Illness - Reason for Consult Consult date: 04/26/18 Acute Kidney Injury - Chief Complaint headache - History of Present Illness Mr. Díaz is a 72 year old male with past medical history of diastolic CHF, COPD, diabetes, hypertension, A. fib not on anticoagulation, pacemaker placement, hypothyroidism, nonalcoholic cirrhosis, diabetic neuropathy who came in with complain of headache ongoing past 2-3 days. Pt c/o of headache today upon examination. is not at bedside, and patient is confused and a poor historian. Per EMR patient is not followed by a health and safety specialist. HONEY workup has been ordered. Retroperitneal US is negative. Urine studies reviewed. Serum labs ordered. Pt does not appear hypovolemic or hypervolemic on examination. Unsure if patient had poor PO intake at home or had any medication changes of recent. Baseline GFR appears to be 30-40. GFR initially was 22, now 28. Continue to hold nephro toxins. Past Med Surg Social Fam HX - Past Medical History Medical history: arthritis, asthma, cirrhosis, CHF, COPD, coronary artery disease, DVT, diabetes, hypertension, liver disease, myocardial infarction, renal disease, thyroid disease Additional medical history: esophageal varices, sleep apnea, anemia, pacemaker, rheumatic fever Psychiatric history: no psych history - Past Surgical History Surgical History: cataract, herniorrhaphy, orthopedic, other, pacemaker/AICD Additional surgical history: egd with banding, finger amputations - Social History Smoking Status: Never smoker Smokeless Tobacco Status: No Alcohol use: none Drug use: none Medications and Allergies RX: Aspirin Enteric Coated [Aspirin EC] 81 mg PO DAILY 12/18/15 [History] RX: Furosemide [Lasix] 40 mg PO BID 07/10/15 [History] RX: Levothyroxine [Synthroid] 125 mcg PO 0630 07/10/15 [History] RX: Metoprolol [Lopressor] 25 mg PO BID 07/10/15 [History] RX: Potassium Chloride 20 meq PO BID 07/10/15 [History] RX: Pantoprazole Sodium [Protonix] 40 mg PO DAILY 01/26/17 [History] RX: Albuterol Sulfate [Proair Hfa] 1 puff IH Q4H PRN 02/24/17 [History] RX: Cholecalciferol (D-3) [Vitamin D] 1,000 unit PO DAILY 02/24/17 [History] RX: Ferrous Sulfate [Iron] 325 mg PO BID 02/24/17 [History] RX: Sertraline [Zoloft] 50 mg PO DAILY 04/25/18 [History] RX: DiphenhydraMINE [Benadryl] 25 mg PO HS PRN capsule 05/07/18 [Rx] RX: Insulin LISPRO [HumaLOG] 0 units SQ HS vial 05/07/18 [Rx] RX: Insulin LISPRO [HumaLOG] 0 units SQ TIDAC vial 05/07/18 [Rx] RX: Lactulose 10 gm PO QID udc 05/07/18 [Rx] RX: Rifaximin [Xifaxan] 550 mg PO BID tablet 05/07/18 [Rx] RX: Spironolactone 50 mg PO BID #60 tablet 05/07/18 [Rx] Allergy/AdvReac Type Severity Reaction Status Date / Time No Known Allergies Allergy Verified 04/25/18 10:43 Review of Systems ROS unobtainable: due to mental status Exam - Vital Signs Vital signs: Initial Vital Signs Temp Pulse Resp BP Pulse Ox 98.2 F 72 18 109/63 97 04/25/18 10:41 04/25/18 10:41 04/25/18 10:41 04/25/18 10:41 04/25/18 10:41 Vital Signs - Last 8 Hours Temp Pulse Resp BP Pulse Ox 04/26/18 12:49 99.2 F 04/26/18 11:30 98.9 F 80 12 111/68 97 04/26/18 07:23 98.8 F 59 18 82/49 96 Intake and Output 04/25/18 04/26/18 04/26/18 23:59 07:59 15:59 Intake Total 1050 / 1050 250 / 250 Output Total 100 / 100 400 / 400 960 / 960 Balance 950 / 950 -150 / -150 -960 / -960 Intake: IV Fluids 250 / 250 0.9 % Sodium Chloride 250 ML @ 250 / 250 999 mls/hr IVC .Q16M TAYLOR Rx#: [id number] Blood Product 1050 / 1050 Rbcs Leuko Poor As-1 Unit 700 / 700 [id number] Rbcs Leuko Poor As-1 Unit 350 / 350 [id number] Output: Urine 100 / 100 400 / 400 Catheter 960 / 960 Urethral (Paulson) 500 / 500 Other: Meal NPO Weight 107.3 kg Blood Glucose* 134 105 126 - General Appearance General appearance: well-developed, well-nourished EENT: ATNC Neck: supple Respiratory: clear Cardiology: no edema, normal S1, normal S2 Gastrointestinal: normoactive bowel sounds, no tenderness, no guarding Integumentary: no rash Neurologic: confused, disoriented Psychiatric: mood/affect appropriate, cooperative Results - Lab Results 04/26/18 04:40 04/26/18 04:40 Most recent lab results Calcium 8.9 mg/dL (8.6-10.3) 04/26/18 04:40 Urine Sodium 83.9 mEq/L 04/25/18 22:50 Consult Discharge Plan - Plan Referrals: [facility] [Provider Group] (please call and schedule a hospital follow up ) Jose Real DO [Primary Care Provider] - (please follow up with the [facility] pcp) Prescriptions: RX: Spironolactone 50 mg PO BID #60 tablet <Alice Brizuela - Last Filed: 05/17/18 08:27> Assessment and Plan (1) Acute kidney injury Status: Acute (2) Cirrhosis Status: Chronic Qualifiers: Hepatic cirrhosis type: unspecified hepatic cirrhosis Ascites presence: unspecified Qualified Code(s): K74.60 - Unspecified cirrhosis of liver (3) GI bleed Status: Acute Qualifiers: GI bleed type/associated pathology: unspecified gastrointestinal hemorrhage type Qualified Code(s): K92.2 - Gastrointestinal hemorrhage, unspecified Past Med Surg Social Fam HX - Family History Father Hx Family Genitourinary Disorders: No (Denies prostate cancer) Exam - Vital Signs Vital signs: Initial Vital Signs Temp Pulse Resp BP Pulse Ox 98.2 F 72 18 109/63 97 04/25/18 10:41 04/25/18 10:41 04/25/18 10:41 04/25/18 10:41 04/25/18 10:41 Results - Lab Results 05/03/18 05:55 05/03/18 05:55 Most recent lab results Calcium 8.5 mg/dL (8.6-10.3) L 05/03/18 05:55 Urine Creatinine 125 mg/dL 04/27/18 03:13 Urine Sodium 83.9 mEq/L 04/25/18 22:50 - Attending Attestation I examined this patient and my medical decision-making was reviewed with the Resident Physician/BRANCH OFFICE ADMINISTRATOR. I agree with the documented findings, disposition and treatment plan as described except to the extent set forth below. In brief; 72 y o male with PMH of COPD, dCHF, DM and HTN admitted for headaches with renal consulted for elevated SCr from baseline. GFR initially at 22 on presentation but improving to 28. Baseline noted around 30-40. Pt unable to give much history of his renal dysfunction but it is noted no prior health and safety specialist records. Exam unremarkable except for confusion. Will initiate HONEY workup on CKD. Avoid nephrotoxins if possible. Encouraged po fluids. Will follow with you
[2018-04-26 13:08] LABS: Hepatitis B Surface Antigen Nonreactive (Nonreactive)
[2018-04-26] MEDS ORDERED: Lidocaine -MPF 2% 2 ML VIAL ONE (14:14)
[2018-04-26] MEDS ORDERED: *HR* Propofol 200 MG/20 ML VIAL IVP ONE (14:14)
--- NOTE | 2018-04-26 15:06 | Anesthesia Evaluation PreOp ---
Date of Encounter: 04/26/18 Time of Encounter: 15:04 - Past History Planned Operation: EGD Cardiac History: SC, CHF, HTN, Arrhythmia (A-Fib), Pacemaker/ICD (st [employer]'s pacemaker) Pulmonary History: Former smoker (quit 2016, smoked for 50 years), COPD MEDICAL FRONT DESK SPECIALIST History: Denies Any Significant HX Other Medical History: Hepatic (non-alcolholic cirrhosis), Renal (HONEY on CKD), Diabetes Type II, Thyroid, GERD Anesthesia History: No Prior Anesthetic Complications, Past Anesthesia Alcohol Use: none Drug use: none Medications and Allergies Aspirin Enteric Coated [Aspirin EC] 81 mg PO DAILY 07/10/15 [History] Furosemide [Lasix] 40 mg PO BID 07/10/15 [History] Levothyroxine [Synthroid] 125 mcg PO 0630 07/10/15 [History] Lisinopril [Zestril] 5 mg PO DAILY 07/10/15 [History] Metformin HCl [Glucophage] 1,000 mg PO DAILY 07/10/15 [History] Metoprolol [Lopressor] 25 mg PO BID 07/10/15 [History] Potassium Chloride 20 meq PO BID 07/10/15 [History] Spironolactone [Aldactone] 50 mg PO DAILY 07/10/15 [History] Pantoprazole Sodium [Protonix] 40 mg PO DAILY 01/26/17 [History] Albuterol Sulfate [Proair Hfa] 1 puff IH Q4H PRN 02/24/17 [History] Cholecalciferol (D-3) [Vitamin D] 1,000 unit PO DAILY 02/24/17 [History] Ferrous Sulfate [Iron] 325 mg PO BID 02/24/17 [History] Sertraline [Zoloft] 50 mg PO DAILY 04/25/18 [History] 3 Allergy/AdvReac Type Severity Reaction Status Date / Time No Known Allergies Allergy Verified 04/25/18 10:43 - Meds/Allergy Pre-op Review Medications Reviewed: Yes Allergies Reviewed: Yes Beta Blockers on Current Med List: Yes If Beta Blockers taken, Date/Time (Last Dose taken): not given last 2 days due to low BP Anesthesia Results - Labs 04/26/18 04:40 04/26/18 04:40 - Imaging EKG: report reviewed (04/25/2018 Atrial fibrillation IVCD, consider atypical RBBB Nonspecific repol abnormality, lateral leads) Additional studies: 03/07/2017 Echo Impressions: LVEF 55-60%. Indeterminate diastolic function. Mildly dilated left ventricle. Dilated RV with normal function. Mild-moderate mitral regurgitation. Mild-moderate tricuspid regurgitation. Moderate pulmonary hypertension. The IVC is dilated. Dilated coronary sinus. Anesthesia Exam Vital Signs/O2 Sat/Glucose, Most Recent Temp Pulse Resp BP Pulse Ox 99.0 F 76 18 108/41 98 04/26/18 15:06 04/26/18 15:06 04/26/18 15:06 04/26/18 15:06 04/26/18 15:06 Blood Glucose* 126 Height: 5'7''/1.7m Weight: 236 lbs/107.3 kg NPO (# of Hours): 8 Pain Scale: 0 Pain Scale Used: Numeric (1 - 10) - HEENT Pupil (Motor): EOMI Mallampati: III Teeth: Missing, Poor dentition Oral Opening: Greater than 3 - MEDICAL FRONT DESK SPECIALIST LOC: Confused - Cardiac Rhythm: Irregular Murmur: Systolic - Pulmonary Breath Sounds: bilateral Clear Respiratory Effort: Symmetrical Anesthesia Assess/Plan ASA Score: 4 Modified Roy Scale for Level of Consciousness: Cooperative, oriented, and tranquil Anesthetic Plan: MAC Monitoring Plan: Standard Monitors
[2018-04-26] MEDS: Insulin LISPRO 300 UNITS/3 ML VIAL SQ SCH ×3 (16:43→23:57)
[2018-04-26] MEDS: Lactulose Oral Soln 20 GM/30 ML UDC PO SCH ×2 (17:49→21:03)
[2018-04-26] MEDS: cefTRIAXone 1,000 MG in Water for inj. (sterile) 20 ML 10 ML IVP SCH (17:49)
[2018-04-27 02:59] LABS: Hepatitis A Antibody IgM Nonreactive (Nonreactive); Hepatitis B Core IgM Nonreactive (Nonreactive); Hepatitis C Virus Antibody Nonreactive (Nonreactive)
[2018-04-27] MEDS: Insulin LISPRO 300 UNITS/3 ML VIAL SQ SCH ×4 (06:04→21:16)
[2018-04-27] MEDS: Pantoprazole 40 MG VIAL IVP SCH (06:04)
[2018-04-27] MEDS: Cholecalciferol (D-3) 1,000 UNIT TABLET PO SCH (08:40)
[2018-04-27] MEDS: Lactulose Oral Soln 20 GM/30 ML UDC PO SCH ×2 (08:40→21:13)
[2018-04-27] MEDS: cefTRIAXone 1,000 MG in Water for inj. (sterile) 20 ML 10 ML IVP SCH (08:41)
--- NOTE | 2018-04-27 13:14 | Internal Med Progress Note ---
Hospitalist Progress Note - Encounter Date of Encounter: 04/27/18 Time of Encounter: 11:26 - Subjective Interval History: Patient seen and examined this morning. No acute overnight events. Does not offer any complains. Incoherent at times. Follows commands. - Exam Vitals: Temp Pulse Resp BP Pulse Ox 98.9 F 78 16 103/61 97 04/27/18 11:05 04/27/18 11:05 04/27/18 11:05 04/27/18 11:05 04/27/18 11:05 Exam: Constitutional: Vitals as noted. Occasionally incoherant. No Apparent Distress. Obese Eyes exam: Sclera mildly icteric, conjunctiva clear, no lid lag, PEARLA. Pale conjunctiva. ENT exam: Decreased hearing. No JVD, no cervical lymphadenopathy. no thyromegaly or mass. Respiratory exam: Clear to auscultation bilaterally. No accessory muscle use, rales, rhonchi or wheezes Cardiovascular exam: irregular rhythm, +S1, +S2. systolic murmur present, no gallop, rubs. No chest wall tenderness GI/Abdominal exam: Soft, Non-tender, Non-distended, normal bowel sounds, soft, no peritoneal signs. no orgenomegaly or mass appreciated. no hernia. Musculoskeletal exam: full ROM, no atrophy or deformity noted. no edema or cyanosis, warm, pulses palpable and symmetrical in UE/LE. no calf tenderness. Neurological exam: AO X1, CN II-XII grossly intact, grossly normal motor and sensory exam. Skin exam: pigmented skin rash on lower extremity , no lesions or ulcers noted. no purpura or ecchymosis. - Assessment and Plan (1) GI bleed Current Visit: Yes Status: Acute (2) Acute kidney injury Current Visit: Yes Status: Acute (3) Anemia Current Visit: Yes Status: Acute (4) Generalized weakness Current Visit: Yes Status: Acute (5) Headache Current Visit: Yes Status: Acute (6) Hyperkalemia Current Visit: Yes Status: Acute (7) Cirrhosis Current Visit: No Status: Chronic (8) HTN (hypertension) Current Visit: Yes Status: Acute (9) Diabetes Current Visit: Yes Status: Acute (10) Hypothyroidism Current Visit: Yes Status: Acute (11) DVT prophylaxis Current Visit: Yes Status: Acute - Summary of Assessment and Plan Summary of Assessment and Plan: GI bleed - s/p EGD with ablation of GAVE. Had colonoscopy recently which was unremarkable. - s/p 2 units of PRBC. - Resume diet. - PO PPI, Monitor H&H. - GI following. Home asprin on hold. HONEY on CKD - Baseline creatinine of 1.5-1.9. - renal ultrasound Unremarkable for Hydronephrosis or stones. Increased post void residual. Had key placed yesterday. - Improving. - Nephrology following. Urology consulted for urinary retention. Anemia - Likely from UGI bleed along cirrhosis and CKD - Management as above. Headache - now minimal - Head CT unremarkable - Etiology likely multifactorial - No focal deficit. will monitor for now. Hyperkalemia - Likely from HONEY on CKD and medications. - EKG without hyperkalemic changes. - Received Kayexalate, 500 mL normal saline, bicarbonate, calcium gluconate in ER. - now resolved. Cirrhosis - We will have to hold home spironolactone and Lasix given HONEY. - Hold home potassium chloride - Started on Ceftriaxone for GI while in hospital. HTN - lisinopril and spironolactone on hold given HONEY and hyperkalemia. - ECHO on 03/07/17 with EF of 55-60 and diastolic dysfunction. Diabetes - Hold home metformin given HONEY - Sliding scale insulin with Accu-Cheks. Low intensity will be used given renal failure Hypothyroidism - Continue home levothyroxine DVT prophylaxis - EPCD - Time Spent with Patient Total time spent is greater than 50% in coordination of care (as documented) at patient's floor/unit and/or counseling patient: Internal Medicine: Result - Labs CBC & Chem 7: 04/26/18 04:40 04/27/18 12:39 - ABG Interpretation ABG results: PT/INR, D-dimer PT 12.6 Seconds (9.4-12.1) H 04/25/18 10:54 - Impressions Impressions Liver Ultrasound 04/27/18 10:00 IMPRESSION: Cirrhosis with small abdominal ascites. No hepatic mass. D/ / Malik Mendoza MD / Malik Mendoza MD Interpreting Provider: Malik Mendoza MD Consult Discharge Plan - Plan Referrals: Jose Real DO [Primary Care Provider] - (1) GI bleed Qualifiers: GI bleed type/associated pathology: unspecified gastrointestinal hemorrhage type Qualified Code(s): K92.2 - Gastrointestinal hemorrhage, unspecified (3) Anemia Qualifiers: Anemia type: unspecified type Qualified Code(s): D64.9 - Anemia, unspecified (5) Headache Qualifiers: Headache type: unspecified Headache chronicity pattern: unspecified pattern (7) Cirrhosis Qualifiers: Hepatic cirrhosis type: unspecified hepatic cirrhosis Ascites presence: unspecified Qualified Code(s): K74.60 - Unspecified cirrhosis of liver (9) Diabetes Qualifiers: Diabetes mellitus type: type 2
[2018-04-27 13:28] LABS: Calcium 8.7 mg/dL (8.6-10.3); Potassium 4.1 mEq/L (3.5-5.1)
--- NOTE | 2018-04-27 17:44 | Urology - Consult Note ---
Date of Encounter: 04/27/18 Time of Encounter: 17:42 - Assessment and Plan (1) Incomplete bladder emptying Current Visit: Yes Status: Acute Assessment and plan: 72-year-old man with a history of incomplete bladder emptying and renal insufficiency is seen in consultation. He currently has an indwelling catheter. I think it is reasonable to continue the catheter per the primary team. He did not have any evidence for hydronephrosis and the ultrasound only showed mild incomplete emptying. I do not think that he has a post renal cause for his renal insufficiency. We will continue to monitor the creatinine. If the primary team would like to discharge him home with a catheter that is reasonable. He can follow-up in our clinic for a voiding trial. Urology will follow along, but no intervention is necessary at this time. (2) Acute kidney injury Current Visit: Yes Status: Acute Urology CN:TIM Consult date: 04/27/18 Reason for consult Urology: Other (renal failure, incomplete bladder emptying) History of present illness: 72-year-old man was admitted for altered mental status changes as well as renal insufficiency. He has a history of liver dysfunction and cirrhosis. He had a renal ultrasound which shows some incomplete bladder emptying. A Paulson catheter was placed. Nephrology and urology were both counseled him for his renal insufficiency. He denies any issues with urination. He says he has a good flow and feels that he empties well. He would like to have his catheter removed. I reviewed his ultrasound. There was no evidence of hydronephrosis. There was some mild incomplete bladder emptying. Past Med Surg Social Fam HX - Past Medical History Medical history: arthritis, asthma, cirrhosis, CHF, COPD, coronary artery disease, DVT, diabetes, hypertension, liver disease, myocardial infarction, renal disease, thyroid disease Additional medical history: esophageal varices, sleep apnea, anemia, pacemaker, rheumatic fever Psychiatric history: no psych history - Past Surgical History Surgical History: cataract, herniorrhaphy, orthopedic, other, pacemaker/AICD Additional surgical history: egd with banding, finger amputations - Social History Smoking Status: Never smoker Smokeless Tobacco Status: No Alcohol use: none Drug use: none - Family History Father Hx Family Genitourinary Disorders: No (Denies prostate cancer) Medications and Allergies Aspirin Enteric Coated [Aspirin EC] 81 mg PO DAILY 07/10/15 [History] Furosemide [Lasix] 40 mg PO BID 07/10/15 [History] Levothyroxine [Synthroid] 125 mcg PO 0630 07/10/15 [History] Lisinopril [Zestril] 5 mg PO DAILY 07/10/15 [History] Metformin HCl [Glucophage] 1,000 mg PO DAILY 07/10/15 [History] Metoprolol [Lopressor] 25 mg PO BID 07/10/15 [History] Potassium Chloride 20 meq PO BID 07/10/15 [History] Spironolactone [Aldactone] 50 mg PO DAILY 07/10/15 [History] Pantoprazole Sodium [Protonix] 40 mg PO DAILY 01/26/17 [History] Albuterol Sulfate [Proair Hfa] 1 puff IH Q4H PRN 02/24/17 [History] Cholecalciferol (D-3) [Vitamin D] 1,000 unit PO DAILY 02/24/17 [History] Ferrous Sulfate [Iron] 325 mg PO BID 02/24/17 [History] Sertraline [Zoloft] 50 mg PO DAILY 04/25/18 [History] 3 Allergy/AdvReac Type Severity Reaction Status Date / Time No Known Allergies Allergy Verified 04/25/18 10:43 Review of Systems - Constitutional no chills, no fever(s) - EENT Nose, mouth and throat: no dizziness - Cardiovascular no chest pain - Respiratory no dyspnea - Gastrointestinal no nausea, no vomiting - Genitourinary no flank pain, no hematuria - Musculoskeletal no back pain - Integumentary no erythema, no rash - Neurological no weakness - Psychiatric no suicidal ideation - Hematologic/Lymphatic no easy bleeding - Allergic/Immunologic no wheezing Exam Initial Vital Signs Temp Pulse Resp BP Pulse Ox 98.2 F 72 18 109/63 97 04/25/18 10:41 04/25/18 10:41 04/25/18 10:41 04/25/18 10:41 04/25/18 10:41 - General physical appearance Present: well developed, well nourished, no distress - Eyes Absent: icteric - ENT Present: normal nares - Neck Present: trachea midline - Respiratory Present: normal respiratory effort - Cardiovascular Cardiovascular exam IM: RRR - Abdomen Abdomen: Present: soft - Genitourinary normal penis with no external lesions, other (Paulson catheter in place.) - Integumentary Present: no rash - Neurologic Present: normal coordination - Musculoskeletal Present: other (Grossly normal) Urology Results - Labs 04/26/18 04:40 04/27/18 12:39 Abnormal lab results WBC 3.0 K/mcL (4.3-11.1) L 04/26/18 04:40 RBC 2.80 M/mcL (4.19-5.50) L 04/26/18 04:40 Hgb 8.7 g/dL (12.9-16.9) L 04/26/18 04:40 Hct 26.8 % (37.5-50.1) L 04/26/18 04:40 RDW 18.3 % (11.5-14.5) H 04/26/18 04:40 Plt Count 60 K/mcL (140-400) L 04/26/18 04:40 Platelet Estimate Decreased (Normal) L 04/26/18 04:40 Immature Plt Fraction 0.9 % (1.1-6.1) L 04/26/18 04:40 Anisocytosis 1+ (Not Present) A 04/26/18 04:40 PT 12.6 Seconds (9.4-12.1) H 04/25/18 10:54 VBG pH 7.31 pH Units (7.32-7.42) L 04/25/18 13:51 VBG pCO2 38 mmHg (41-51) L 04/25/18 13:51 VBG pO2 147 mmHg (25-50) H 04/25/18 13:51 VBG HCO3 19 mEq/L (21-27) L 04/25/18 13:51 Chloride 114 mEq/L (98-107) H 04/27/18 12:39 BUN 31 mg/dL (8-23) H 04/27/18 12:39 Creatinine 1.75 mg/dL (0.70-1.30) H 04/27/18 12:39 Est GFR ( Amer) 46 (> 60) L 04/27/18 12:39 Est GFR (Non-Af Amer) 38 (> 60) L 04/27/18 12:39 Glucose 115 mg/dL (70-105) H 04/27/18 12:39 POC Glucose 141 mg/dL (70-99) H 04/27/18 06:00 Serum Osmolality 314 mOsm/kg (280-300) H 04/25/18 17:06 Calculated Osmolality 303 (280-300) H 04/27/18 12:39 Uric Acid 12.5 mg/dL (2.3-7.6) H 04/26/18 11:43 Total Bilirubin 1.4 mg/dL (0.3-1.0) H 04/26/18 04:40 Serum Total Protein 5.1 g/dL (6.4-8.9) L 04/26/18 04:40 Albumin 3.0 g/dL (3.5-5.7) L 04/26/18 04:40 Globulin 2.1 g/dL (2.4-3.5) L 04/26/18 04:40 Stool Occult Bld Scrn Positive (Negative) A 04/25/18 13:04 Diabetes panel 04/27/18 Range/Units 12:39 Sodium 143 (136-145) mEq/L Potassium 4.1 (3.5-5.1) mEq/L Chloride 114 H (98-107) mEq/L Carbon Dioxide 26 (23-29) mEq/L BUN 31 H (8-23) mg/dL Creatinine 1.75 H (0.70-1.30) mg/dL Glucose 115 H (70-105) mg/dL Calcium 8.7 (8.6-10.3) mg/dL Calcium panel 04/27/18 Range/Units 12:39 Calcium 8.7 (8.6-10.3) mg/dL Pituitary panel 04/27/18 Range/Units 12:39 Sodium 143 (136-145) mEq/L Potassium 4.1 (3.5-5.1) mEq/L Chloride 114 H (98-107) mEq/L Carbon Dioxide 26 (23-29) mEq/L BUN 31 H (8-23) mg/dL Creatinine 1.75 H (0.70-1.30) mg/dL Glucose 115 H (70-105) mg/dL Calcium 8.7 (8.6-10.3) mg/dL Adrenal panel 04/27/18 Range/Units 12:39 Sodium 143 (136-145) mEq/L Potassium 4.1 (3.5-5.1) mEq/L Chloride 114 H (98-107) mEq/L Carbon Dioxide 26 (23-29) mEq/L BUN 31 H (8-23) mg/dL Creatinine 1.75 H (0.70-1.30) mg/dL Glucose 115 H (70-105) mg/dL Calcium 8.7 (8.6-10.3) mg/dL All other labs normal. - Imaging US - abdomen: report reviewed, image reviewed US - pelvic: report reviewed, image reviewed Consult Discharge Plan - Plan Referrals: Jose Real DO [Primary Care Provider] -
[2018-04-27 21:21] LABS: Basophils % 0.2 %; Eosinophils # 0.1 K/mcL (0.0-0.6); Eosinophils % 1.9 %; Hematocrit 29.8 % (37.5-50.1); Hemoglobin 9.7 g/dL (12.9-16.9); Immature Granulocytes % 0.2 % (0-4); Lymphocytes # 0.5 K/mcL (0.6-4.6); Mean Corpuscular HGB Conc 32.6 g/dL (31.6-35.5); Mean Corpuscular Hemoglobin 31.5 pg (28.0-33.3); Mean Corpuscular Volume 96.8 fL (83.0-100.0); Monocytes # 0.5 K/mcL (0.0-1.3); Monocytes % 11.4 %; Neutrophils # 3.2 K/mcL (1.6-8.9); Red Blood Count 3.08 M/mcL (4.19-5.50); Red Cell Distribution Width 17.2 % (11.5-14.5); Segmented Neutrophils % 75.3 %
[2018-04-27 21:22] LABS: Platelet Count 63 K/mcL (140-400)
--- NOTE | 2018-04-27 22:05 | Nephrology Progress Note ---
Date of Encounter: 04/27/18 Time of Encounter: 12:00 - Assessment and Plan (1) Acute kidney injury Current Visit: Yes Status: Acute SCr significantly improved back to baseline at 1.76, GFR 38 UOP noted at 1360cc in the past 24hrs, which is good. Pt seen by urology recommending keeping key Urine studies reviewed CPK WNL, uric acid elevated Continue to avoid nephrotoxins if possible Encouraged adequate fluids intake (2) Cirrhosis Current Visit: No Status: Chronic Per GI. Qualifiers: Hepatic cirrhosis type: unspecified hepatic cirrhosis Ascites presence: unspecified Qualified Code(s): K74.60 - Unspecified cirrhosis of liver (3) GI bleed Current Visit: Yes Status: Acute Per GI. On Protonix gtt. Hgb improved at 9.7 today Qualifiers: GI bleed type/associated pathology: unspecified gastrointestinal hemorrhage type Qualified Code(s): K92.2 - Gastrointestinal hemorrhage, unspecified Subjective Interval history: Pt seen and examined with sitter at bedside, resting comfortably. No new complaints per sitter. Objective - Vital Signs Vital signs: Vital Signs Temp Pulse Resp BP Pulse Ox 04/27/18 20:56 98.1 F 79 18 109/44 94 04/27/18 15:13 98.4 F 68 18 111/70 95 04/27/18 11:05 98.9 F 78 16 103/61 97 04/27/18 06:55 97.9 F 77 16 131/64 97 04/27/18 03:27 98.8 F 71 15 115/62 97 04/26/18 23:46 98.3 F 71 16 93/51 97 Intake and Output 04/27/18 04/27/18 04/27/18 07:59 15:59 23:59 Intake Total 300 / 300 0 / 0 265 / 265 Output Total 500 / 500 300 / 300 450 / 450 Balance -200 / -200 -300 / -300 -185 / -185 Intake: Oral 300 / 300 0 / 0 265 / 265 Output: Catheter 500 / 500 300 / 300 450 / 450 Other: Meal NPO lunch Dinner Percent of Meal Consumed 0% 100% Weight 103.4 kg Blood Glucose* 141 131 129 Patient Weight 04/27/18 23:59 Weight 103.4 kg - Lab 04/27/18 21:11 04/27/18 12:39 Most recent lab results Calcium 8.7 mg/dL (8.6-10.3) 04/27/18 12:39 Urine Creatinine 125 mg/dL 04/27/18 03:13 Urine Sodium 83.9 mEq/L 04/25/18 22:50 Consult Discharge Plan - Plan Referrals: Jose Real DO [Primary Care Provider] -
[2018-04-28 05:45] LABS: Basophils % 0.5 %; Red Blood Count 2.87 M/mcL (4.19-5.50)
[2018-04-28 05:46] LABS: Eosinophils # 0.1 K/mcL (0.0-0.6); Eosinophils % 2.6 %; Hemoglobin 8.8 g/dL (12.9-16.9); Immature Granulocytes % 0.5 % (0-4); Immature Platelets 1.4 % (1.1-6.1); Lymphocytes # 0.6 K/mcL (0.6-4.6); Lymphocytes % 13.5 %; Mean Corpuscular HGB Conc 31.4 g/dL (31.6-35.5); Mean Corpuscular Hemoglobin 30.7 pg (28.0-33.3); Mean Corpuscular Volume 97.6 fL (83.0-100.0); Mean Platelet Volume 10.2 fL (9.4-12.4); Monocytes # 0.5 K/mcL (0.0-1.3); Monocytes % 11.1 %; Segmented Neutrophils % 71.8 %
[2018-04-28 06:00] LABS: Platelet Count 56 K/mcL (140-400)
[2018-04-28 06:10] LABS: Calcium 8.3 mg/dL (8.6-10.3)
[2018-04-28] MEDS: Insulin LISPRO 300 UNITS/3 ML VIAL SQ SCH ×4 (08:52→21:44)
[2018-04-28] MEDS: Cholecalciferol (D-3) 1,000 UNIT TABLET PO SCH (08:54)
[2018-04-28] MEDS: cefTRIAXone 1,000 MG in Water for inj. (sterile) 20 ML 10 ML IVP SCH (08:55)
--- NOTE | 2018-04-28 10:15 | Internal Med Progress Note ---
Hospitalist Progress Note - Encounter Date of Encounter: 04/28/18 Time of Encounter: 10:04 - Subjective Interval History: No acute overnight events. Still incoherent at times. Follows commands. - Exam Vitals: Temp Pulse Resp BP Pulse Ox 98.4 F 67 17 92/47 97 04/28/18 04:38 04/28/18 08:00 04/28/18 08:00 04/28/18 08:00 04/28/18 08:00 Exam: Constitutional: Vitals as noted. Occasionally incoherant. No Apparent Distress. Obese Eyes exam: Sclera mildly icteric, conjunctiva clear, no lid lag, PEARLA. Pale conjunctiva. ENT exam: Decreased hearing. No JVD, no cervical lymphadenopathy. no thyromegaly or mass. Respiratory exam: Clear to auscultation bilaterally. No accessory muscle use, rales, rhonchi or wheezes Cardiovascular exam: irregular rhythm, +S1, +S2. systolic murmur present, no gallop, rubs. No chest wall tenderness GI/Abdominal exam: Soft, Non-tender, Non-distended, normal bowel sounds, soft, no peritoneal signs. no orgenomegaly or mass appreciated. no hernia. Musculoskeletal exam: full ROM, no atrophy or deformity noted. no edema or cyanosis, warm, pulses palpable and symmetrical in UE/LE. no calf tenderness. Neurological exam: AO X1, CN II-XII grossly intact, grossly normal motor and sensory exam. Skin exam: pigmented skin rash on lower extremity , no lesions or ulcers noted. no purpura or ecchymosis. - Assessment and Plan (1) GI bleed Current Visit: Yes Status: Acute (2) Acute kidney injury Current Visit: Yes Status: Acute (3) Anemia Current Visit: Yes Status: Acute (4) Generalized weakness Current Visit: Yes Status: Acute (5) Headache Current Visit: Yes Status: Acute (6) Hyperkalemia Current Visit: Yes Status: Acute (7) Cirrhosis Current Visit: No Status: Chronic (8) HTN (hypertension) Current Visit: Yes Status: Acute (9) Diabetes Current Visit: Yes Status: Acute (10) Hypothyroidism Current Visit: Yes Status: Acute (11) DVT prophylaxis Current Visit: Yes Status: Acute - Summary of Assessment and Plan Summary of Assessment and Plan: GI bleed - s/p EGD with ablation of GAVE. Had colonoscopy recently which was unremarkable. - s/p 2 units of PRBC. - Resume diet. - PO PPI, Monitor H&H. - GI following. Home asprin on hold. HONEY on CKD - Now at baseline 1.7 - renal ultrasound Unremarkable for Hydronephrosis or stones. Increased post void residual. Had key placed yesterday. - Nephrology following. Appreciate input. Elevated uric acid. - Urology consulted for urinary retention. Appreciate recommendations. Will continue key on discharge. 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 - Management as above. Headache - now minimal - Head CT unremarkable - Etiology likely multifactorial - No focal deficit. will monitor for now. Hyperkalemia - Likely from HONEY on CKD and medications. - EKG without hyperkalemic changes. - Received Kayexalate, 500 mL normal saline, bicarbonate, calcium gluconate in ER. - now resolved. Cirrhosis - We will have to hold home spironolactone and Lasix given HONEY. - Hold home potassium chloride. - Started on Ceftriaxone for GI while in hospital. Also started on lactulose - Liver ultrasound without mass. HTN - lisinopril and spironolactone on hold given HONEY and hyperkalemia. - ECHO on 03/07/17 with EF of 55-60 and diastolic dysfunction. Diabetes - Hold home metformin given HONEY - Sliding scale insulin with Accu-Cheks. Low intensity will be used given renal failure Hypothyroidism - Continue home levothyroxine DVT prophylaxis - EPCD Will get PT evaluation for improving mobility and movement for discharge planning. Plan for discharge tommorrow after PT eval. - Time Spent with Patient Total time spent is greater than 50% in coordination of care (as documented) at patient's floor/unit and/or counseling patient: Internal Medicine: Result - Labs CBC & Chem 7: 04/28/18 05:18 04/28/18 05:18 Labs: Short CBC 04/27/18 04/28/18 Range/Units 21:11 05:18 WBC 4.3 4.2 L (4.3-11.1) K/mcL Hgb 9.7 L 8.8 L (12.9-16.9) g/dL Hct 29.8 L 28.0 L (37.5-50.1) % Plt Count 63 L 56 L (140-400) K/mcL Neutrophils # 3.2 3.0 (1.6-8.9) K/mcL BMP 04/27/18 04/28/18 12:39 05:18 Sodium 143 137 Potassium 4.1 4.0 Chloride 114 H 111 H Carbon Dioxide 26 22 L BUN 31 H 27 H Creatinine 1.75 H 1.77 H Glucose 115 H 116 H Calcium 8.7 8.3 L - ABG Interpretation ABG results: PT/INR, D-dimer PT 12.6 Seconds (9.4-12.1) H 04/25/18 10:54 - Impressions Impressions Liver Ultrasound 04/27/18 10:00 IMPRESSION: Cirrhosis with small abdominal ascites. No hepatic mass. D/ / Malik Mendoza MD / Malik Mendoza MD Interpreting Provider: Malik Mendoza MD Consult Discharge Plan - Plan Referrals: Jose Real DO [Primary Care Provider] - (1) GI bleed Qualifiers: GI bleed type/associated pathology: unspecified gastrointestinal hemorrhage type Qualified Code(s): K92.2 - Gastrointestinal hemorrhage, unspecified (3) Anemia Qualifiers: Anemia type: unspecified type Qualified Code(s): D64.9 - Anemia, unspecified (5) Headache Qualifiers: Headache type: unspecified Headache chronicity pattern: unspecified pattern (7) Cirrhosis Qualifiers: Hepatic cirrhosis type: unspecified hepatic cirrhosis Ascites presence: unspecified Qualified Code(s): K74.60 - Unspecified cirrhosis of liver (9) Diabetes Qualifiers: Diabetes mellitus type: type 2
--- NOTE | 2018-04-28 11:57 | Nephrology Progress Note ---
Date of Encounter: 04/28/18 Time of Encounter: 11:55 - Assessment and Plan (1) Acute kidney injury Current Visit: Yes Status: Acute SCr still back to baseline at 1.77, GFR 38, will sign off. Please reconsult prn UOP noted at 1250cc in the past 24hrs, which is good. Pt seen by urology recommending keeping key Will repeat uric acid level, shoud be improving with good UOP Continue to avoid nephrotoxins if possible Continue adequate fluids intake (2) Cirrhosis Current Visit: No Status: Chronic Per GI. Qualifiers: Hepatic cirrhosis type: unspecified hepatic cirrhosis Ascites presence: unspecified Qualified Code(s): K74.60 - Unspecified cirrhosis of liver (3) GI bleed Current Visit: Yes Status: Acute Per GI. On Protonix gtt. Hgb down at 8.8 today Qualifiers: GI bleed type/associated pathology: unspecified gastrointestinal hemorrhage type Qualified Code(s): K92.2 - Gastrointestinal hemorrhage, unspecified Subjective Interval history: Pt seen and examined Objective - Vital Signs Vital signs: Vital Signs Temp Pulse Resp BP Pulse Ox 04/28/18 11:50 98.7 F 72 18 112/71 96 04/28/18 08:00 67 17 92/47 97 04/28/18 04:38 98.4 F 70 17 106/57 96 04/27/18 23:34 98.7 F 62 18 111/70 95 04/27/18 20:56 98.1 F 79 18 109/44 94 04/27/18 15:13 98.4 F 68 18 111/70 95 Intake and Output 04/27/18 04/28/18 04/28/18 23:59 07:59 15:59 Intake Total 265 / 265 0 / 0 Output Total 450 / 450 Balance -185 / -185 0 / 0 Intake: Oral 265 / 265 0 / 0 Output: Catheter 450 / 450 Other: Meal Dinner Breakfast Percent of Meal Consumed 100% 0% Weight 104.4 kg Blood Glucose* 119 110 105 - Lab 04/28/18 05:18 04/28/18 05:18 Most recent lab results Calcium 8.3 mg/dL (8.6-10.3) L 04/28/18 05:18 Urine Creatinine 125 mg/dL 04/27/18 03:13 Urine Sodium 83.9 mEq/L 04/25/18 22:50 Consult Discharge Plan - Plan Referrals: Jose Real DO [Primary Care Provider] -
[2018-04-28] MEDS: Lactulose Oral Soln 20 GM/30 ML UDC PO SCH ×2 (12:00→21:38)
[2018-04-28 14:05] LABS: Uric Acid 10.3 mg/dL (2.3-7.6)
--- NOTE | 2018-04-28 14:06 | Urology Progress Note ---
Date of Encounter: 04/28/18 Time of Encounter: 14:05 - Assessment and Plan (1) Incomplete bladder emptying Current Visit: Yes Status: Acute Assessment and plan: 72-year-old man with incomplete bladder emptying. Renal function is improving. I do not think that incomplete emptying is likely the source for his renal insufficiency. Primary team can remove his catheter when it is no longer needed. Please call with any questions. (2) Acute kidney injury Current Visit: Yes Status: Acute Progress Note Narrative: Doing well today. No issues with the catheter. Creatinine is improving. Objective Initial Vital Signs Temp Pulse Resp BP Pulse Ox 98.2 F 72 18 109/63 97 04/25/18 10:41 04/25/18 10:41 04/25/18 10:41 04/25/18 10:41 04/25/18 10:41 - General physical appearance Present: well developed, well nourished, no distress - Respiratory Present: normal respiratory effort - Abdomen Present: soft - Genitourinary Urine Appearance: Present: Clear - Labs 04/28/18 05:18 04/28/18 05:18 Diabetes panel 04/28/18 Range/Units 05:18 Sodium 137 (136-145) mEq/L Potassium 4.0 (3.5-5.1) mEq/L Chloride 111 H (98-107) mEq/L Carbon Dioxide 22 L (23-29) mEq/L BUN 27 H (8-23) mg/dL Creatinine 1.77 H (0.70-1.30) mg/dL Glucose 116 H (70-105) mg/dL Calcium 8.3 L (8.6-10.3) mg/dL Calcium panel 04/28/18 Range/Units 05:18 Calcium 8.3 L (8.6-10.3) mg/dL Pituitary panel 04/28/18 Range/Units 05:18 Sodium 137 (136-145) mEq/L Potassium 4.0 (3.5-5.1) mEq/L Chloride 111 H (98-107) mEq/L Carbon Dioxide 22 L (23-29) mEq/L BUN 27 H (8-23) mg/dL Creatinine 1.77 H (0.70-1.30) mg/dL Glucose 116 H (70-105) mg/dL Calcium 8.3 L (8.6-10.3) mg/dL Adrenal panel 04/28/18 Range/Units 05:18 Sodium 137 (136-145) mEq/L Potassium 4.0 (3.5-5.1) mEq/L Chloride 111 H (98-107) mEq/L Carbon Dioxide 22 L (23-29) mEq/L BUN 27 H (8-23) mg/dL Creatinine 1.77 H (0.70-1.30) mg/dL Glucose 116 H (70-105) mg/dL Calcium 8.3 L (8.6-10.3) mg/dL Consult Discharge Plan - Plan Referrals: Jose Real DO [Primary Care Provider] -
[2018-04-29 07:17] LABS: Basophils % 0.6 %
[2018-04-29 07:19] LABS: Eosinophils # 0.1 K/mcL (0.0-0.6); Eosinophils % 3.7 %; Hematocrit 28.6 % (37.5-50.1); Hemoglobin 9.2 g/dL (12.9-16.9); Immature Granulocytes % 0.3 % (0-4); Immature Platelets 2.2 % (1.1-6.1); Lymphocytes # 0.6 K/mcL (0.6-4.6); Lymphocytes % 16.5 %; Mean Corpuscular HGB Conc 32.2 g/dL (31.6-35.5); Mean Corpuscular Hemoglobin 31.1 pg (28.0-33.3); Mean Corpuscular Volume 96.6 fL (83.0-100.0); Mean Platelet Volume 10.1 fL (9.4-12.4); Monocytes # 0.4 K/mcL (0.0-1.3); Red Blood Count 2.96 M/mcL (4.19-5.50); Red Cell Distribution Width 16.3 % (11.5-14.5); Segmented Neutrophils % 66.9 %
[2018-04-29 07:24] LABS: Neutrophils # 2.3 K/mcL (1.6-8.9); Platelet Count 55 K/mcL (140-400)
[2018-04-29 07:36] LABS: Calcium 8.6 mg/dL (8.6-10.3); Potassium 4.2 mEq/L (3.5-5.1)
[2018-04-29] MEDS: Insulin LISPRO 300 UNITS/3 ML VIAL SQ SCH ×4 (08:03→21:25)
[2018-04-29] MEDS ORDERED: *HR* OxyCODONE/APAP 5/325 TABLET PO ONE (08:27)
[2018-04-29] MEDS: cefTRIAXone 1,000 MG in Water for inj. (sterile) 20 ML 10 ML IVP SCH (09:19)
[2018-04-29] MEDS: Cholecalciferol (D-3) 1,000 UNIT TABLET PO SCH (09:19)
[2018-04-29] MEDS: Lactulose Oral Soln 20 GM/30 ML UDC PO SCH ×2 (09:20→21:25)
--- NOTE | 2018-04-29 12:26 | Internal Med Progress Note ---
Hospitalist Progress Note - Encounter Date of Encounter: 04/29/18 Time of Encounter: 08:12 - Subjective Interval History: No acute overnight events. Still incoherent at times. Slightly more aggressive and delirious overnight. - Exam Vitals: Temp Pulse Resp BP Pulse Ox 97.9 F 51 18 106/61 95 04/29/18 11:16 04/29/18 11:16 04/29/18 11:16 04/29/18 11:16 04/29/18 11:16 Exam: Constitutional: Vitals as noted. Incoherant. No Apparent Distress. Obese Eyes exam: Sclera mildly icteric, conjunctiva clear, no lid lag, PEARLA. Pale conjunctiva. ENT exam: Decreased hearing. No JVD, no cervical lymphadenopathy. no thyromegaly or mass. Respiratory exam: Clear to auscultation bilaterally. No accessory muscle use, rales, rhonchi or wheezes Cardiovascular exam: irregular rhythm, +S1, +S2. systolic murmur present, no gallop, rubs. No chest wall tenderness GI/Abdominal exam: Soft, Non-tender, Non-distended, normal bowel sounds, soft, no peritoneal signs. no orgenomegaly or mass appreciated. no hernia. Musculoskeletal exam: full ROM, no atrophy or deformity noted. no edema or cyanosis, warm, pulses palpable and symmetrical in UE/LE. no calf tenderness. Neurological exam: AO X0, CN II-XII grossly intact, grossly normal motor and sensory exam. Skin exam: pigmented skin rash on lower extremity , no lesions or ulcers noted. no purpura or ecchymosis. - Assessment and Plan (1) GI bleed Current Visit: Yes Status: Acute (2) Acute kidney injury Current Visit: Yes Status: Acute (3) Anemia Current Visit: Yes Status: Acute (4) Generalized weakness Current Visit: Yes Status: Acute (5) Headache Current Visit: Yes Status: Acute (6) Hyperkalemia Current Visit: Yes Status: Acute (7) Cirrhosis Current Visit: No Status: Chronic (8) HTN (hypertension) Current Visit: Yes Status: Acute (9) Diabetes Current Visit: Yes Status: Acute (10) Hypothyroidism Current Visit: Yes Status: Acute (11) DVT prophylaxis Current Visit: Yes Status: Acute - Summary of Assessment and Plan Summary of Assessment and Plan: GI bleed - s/p EGD with ablation of GAVE. Had colonoscopy recently which was unremarkable. - s/p 2 units of PRBC. - Resumed diet. - c/w PO PPI, H&H stable. Monitor for now. - GI following. Home asprin on hold. HONEY on CKD - Now at baseline - renal ultrasound Unremarkable for Hydronephrosis or stones. Increased post void residual. Had key placed after which significant improvement. - Nephrology following. Repeated uric acid. - Urology consulted for urinary retention. Appreciate recommendations. Will continue key for now. 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 - Management as above. Headache - now minimal - Head CT unremarkable - Etiology likely multifactorial - No focal deficit. will monitor for now. Hyperkalemia - Likely from HONEY on CKD and medications. - EKG without hyperkalemic changes. - Received Kayexalate, 500 mL normal saline, bicarbonate, calcium gluconate in ER. - now resolved. Cirrhosis - We will have to hold home spironolactone and Lasix given HONEY. - Hold home potassium chloride. - Started on Ceftriaxone for GI while in hospital. c/w lactulose for hepatic encephelopathy. - Liver ultrasound without mass. Delirium and aggression - Cannot offer complains. Previously reported some back pain - will give one dose of percocet and haloperidol. HTN - lisinopril and spironolactone on hold given HONEY, hyperkalemia and low BP - ECHO on 03/07/17 with EF of 55-60 and diastolic dysfunction. Diabetes - Hold home metformin given HONEY - Sliding scale insulin with Accu-Cheks. Low intensity will be used given renal failure Hypothyroidism - Continue home levothyroxine DVT prophylaxis - EPCD Will get PT evaluation for improving mobility and movement for discharge planning. Will also need social work therapist. Likely needs ECF placement. Plan for discharge after PT eval. - Time Spent with Patient Total time spent is greater than 50% in coordination of care (as documented) at patient's floor/unit and/or counseling patient: Internal Medicine: Result - Labs CBC & Chem 7: 04/29/18 06:42 04/29/18 06:42 Labs: Short CBC 04/29/18 Range/Units 06:42 WBC 3.5 L (4.3-11.1) K/mcL Hgb 9.2 L (12.9-16.9) g/dL Hct 28.6 L (37.5-50.1) % Plt Count 55 L (140-400) K/mcL Neutrophils # 2.3 (1.6-8.9) K/mcL BMP 04/28/18 04/29/18 05:18 06:42 Sodium 137 139 Potassium 4.0 4.2 Chloride 111 H 112 H Carbon Dioxide 22 L 22 L BUN 27 H 24 H Creatinine 1.77 H 1.57 H Glucose 116 H 112 H Calcium 8.3 L 8.6 - ABG Interpretation ABG results: PT/INR, D-dimer PT 12.6 Seconds (9.4-12.1) H 04/25/18 10:54 Consult Discharge Plan - Plan Referrals: Jose Real DO [Primary Care Provider] - (1) GI bleed Qualifiers: GI bleed type/associated pathology: unspecified gastrointestinal hemorrhage type Qualified Code(s): K92.2 - Gastrointestinal hemorrhage, unspecified (3) Anemia Qualifiers: Anemia type: unspecified type Qualified Code(s): D64.9 - Anemia, unspecified (5) Headache Qualifiers: Headache type: unspecified Headache chronicity pattern: unspecified pattern (7) Cirrhosis Qualifiers: Hepatic cirrhosis type: unspecified hepatic cirrhosis Ascites presence: unspecified Qualified Code(s): K74.60 - Unspecified cirrhosis of liver (9) Diabetes Qualifiers: Diabetes mellitus type: type 2
[2018-04-30] MEDS: cefTRIAXone 1,000 MG in Water for inj. (sterile) 20 ML 10 ML IVP SCH (08:49)
[2018-04-30] MEDS: Lactulose Oral Soln 20 GM/30 ML UDC PO SCH ×4 (08:49→20:21)
[2018-04-30] MEDS: Insulin LISPRO 300 UNITS/3 ML VIAL SQ SCH ×4 (08:49→20:23)
[2018-04-30] MEDS: Cholecalciferol (D-3) 1,000 UNIT TABLET PO SCH (08:49)
--- NOTE | 2018-04-30 11:48 | Internal Med Progress Note ---
Hospitalist Progress Note - Encounter Date of Encounter: 04/30/18 Time of Encounter: 09:12 - Subjective Interval History: No acute overnight events. Still incoherent and delirious overnight. Only 1 BM yesterday. - Exam Vitals: Temp Pulse Resp BP Pulse Ox 99.2 F 71 16 124/47 96 04/30/18 10:26 04/30/18 10:26 04/30/18 10:26 04/30/18 10:26 04/30/18 10:26 Exam: Constitutional: Vitals as noted. Incoherant. No Apparent Distress. Obese Eyes exam: Sclera mildly icteric, conjunctiva clear, no lid lag, PEARLA. Pale conjunctiva. ENT exam: Decreased hearing. No JVD, no cervical lymphadenopathy. no thyromegaly or mass. Respiratory exam: Clear to auscultation bilaterally. No accessory muscle use, rales, rhonchi or wheezes Cardiovascular exam: irregular rhythm, +S1, +S2. systolic murmur present, no gallop, rubs. No chest wall tenderness GI/Abdominal exam: Soft, Non-tender, Non-distended, normal bowel sounds, soft, no peritoneal signs. no orgenomegaly or mass appreciated. no hernia. Musculoskeletal exam: full ROM, no atrophy or deformity noted. no edema or cyanosis, warm, pulses palpable and symmetrical in UE/LE. no calf tenderness. Neurological exam: AO X0, CN II-XII grossly intact, grossly normal motor and sensory exam. Skin exam: pigmented skin rash on lower extremity , no lesions or ulcers noted. no purpura or ecchymosis. - Assessment and Plan (1) GI bleed Current Visit: Yes Status: Acute (2) Acute kidney injury Current Visit: Yes Status: Acute (3) Anemia Current Visit: Yes Status: Acute (4) Generalized weakness Current Visit: Yes Status: Acute (5) Headache Current Visit: Yes Status: Acute (6) Hyperkalemia Current Visit: Yes Status: Acute (7) Cirrhosis Current Visit: No Status: Chronic (8) HTN (hypertension) Current Visit: Yes Status: Acute (9) Diabetes Current Visit: Yes Status: Acute (10) Hypothyroidism Current Visit: Yes Status: Acute (11) DVT prophylaxis Current Visit: Yes Status: Acute - Summary of Assessment and Plan Summary of Assessment and Plan: GI bleed - s/p EGD with ablation of GAVE. Had colonoscopy recently which was unremarkable. - s/p 2 units of PRBC. - Resumed diet. - c/w PO PPI, H&H stable. Monitor for now. - GI following. Home asprin on hold. HONEY on CKD - Now at baseline - renal ultrasound Unremarkable for Hydronephrosis or stones. Increased post void residual. Had key placed after which significant improvement. - Nephrology following. Repeated uric acid. - Urology consulted for urinary retention. Appreciate recommendations. Will continue key on DC. f/u urology outpt for Headache - now minimal - Head CT unremarkable - Etiology likely multifactorial - No focal deficit. will monitor for now. Hyperkalemia - Likely from HONEY on CKD and medications. - EKG without hyperkalemic changes. - Received Kayexalate, 500 mL normal saline, bicarbonate, calcium gluconate in ER. - now resolved. Cirrhosis - We will have to hold home spironolactone and Lasix given HONEY. - Hold home potassium chloride. - DC Ceftriaxone. Start Rifaximin. c/w lactulose for hepatic encephelopathy. Increase lactulose dose given 1 BM yesterday. - Liver ultrasound without mass. Delirium and aggression - Cannot offer complains. Previously reported some back pain - Likely from hepatic encephelopathy. Started rifaximin, increase lactulose. HTN - lisinopril and spironolactone on hold given HONEY, hyperkalemia and low BP - ECHO on 03/07/17 with EF of 55-60 and diastolic dysfunction. Diabetes - Hold home metformin given HONEY - Sliding scale insulin with Accu-Cheks. Low intensity will be used given renal failure Hypothyroidism - Continue home levothyroxine DVT prophylaxis - EPCD Will get PT evaluation for improving mobility and movement for discharge planning. Will also need social worker assistant. Likely needs ECF placement. Plan for discharge after PT eval. - Time Spent with Patient Total time spent is greater than 50% in coordination of care (as documented) at patient's floor/unit and/or counseling patient: Internal Medicine: Result - Labs CBC & Chem 7: 04/29/18 06:42 04/29/18 06:42 - ABG Interpretation ABG results: PT/INR, D-dimer PT 12.6 Seconds (9.4-12.1) H 04/25/18 10:54 Consult Discharge Plan - Plan Referrals: Jose Real DO [Primary Care Provider] - (1) GI bleed Qualifiers: GI bleed type/associated pathology: unspecified gastrointestinal hemorrhage type Qualified Code(s): K92.2 - Gastrointestinal hemorrhage, unspecified (3) Anemia Qualifiers: Anemia type: unspecified type Qualified Code(s): D64.9 - Anemia, unspecified (5) Headache Qualifiers: Headache type: unspecified Headache chronicity pattern: unspecified pattern (7) Cirrhosis Qualifiers: Hepatic cirrhosis type: unspecified hepatic cirrhosis Ascites presence: unspecified Qualified Code(s): K74.60 - Unspecified cirrhosis of liver (9) Diabetes Qualifiers: Diabetes mellitus type: type 2
[2018-05-01 04:06] LABS: Eosinophils # 0.1 K/mcL (0.0-0.6); Eosinophils % 3.1 %; Hemoglobin 9.4 g/dL (12.9-16.9); Immature Granulocytes % 0.9 % (0-4); Red Cell Distribution Width 15.8 % (11.5-14.5)
[2018-05-01 04:07] LABS: Basophils % 0.5 %; Hematocrit 28.3 % (37.5-50.1); Immature Platelets 2.6 % (1.1-6.1); Lymphocytes # 0.7 K/mcL (0.6-4.6); Lymphocytes % 15.8 %; Mean Corpuscular HGB Conc 33.2 g/dL (31.6-35.5); Mean Corpuscular Hemoglobin 31.6 pg (28.0-33.3); Mean Corpuscular Volume 95.3 fL (83.0-100.0); Mean Platelet Volume 10.2 fL (9.4-12.4); Monocytes # 0.5 K/mcL (0.0-1.3); Monocytes % 11.6 %; Neutrophils # 2.9 K/mcL (1.6-8.9); Red Blood Count 2.97 M/mcL (4.19-5.50); Segmented Neutrophils % 68.1 %
[2018-05-01 04:08] LABS: Platelet Count 59 K/mcL (140-400)
[2018-05-01 04:23] LABS: Calcium 8.4 mg/dL (8.6-10.3)
[2018-05-01] MEDS: Insulin LISPRO 300 UNITS/3 ML VIAL SQ SCH ×4 (09:08→20:46)
[2018-05-01] MEDS: cefTRIAXone 1,000 MG in Water for inj. (sterile) 20 ML 10 ML IVP SCH (09:22)
[2018-05-01] MEDS: Cholecalciferol (D-3) 1,000 UNIT TABLET PO SCH (09:22)
[2018-05-01] MEDS: Lactulose Oral Soln 20 GM/30 ML UDC PO SCH ×4 (09:23→20:46)
--- NOTE | 2018-05-01 20:41 | Internal Med Progress Note ---
Hospitalist Progress Note - Encounter Date of Encounter: 05/01/18 Time of Encounter: 19:00 - Subjective Interval History: SUBJECTIVE: The patient does not show any distress. He knows his first name and last name. Otherwise, he is disoriented. He does not help with physical therapy at all. He is too weak to ambulate on his own. He does have a sitter. The patient eats only small amounts of foods. He has not voiced any particular problems recently. OBJECTIVE: Skin: Free of rash and discoloration. ENMT: Oral/pharyngeal mucosa is normal in appearance. Eyes: Sclera is white. There is no discharge from eyes. Respiratory: Normal breath sounds; no crackles or wheezes. CV: Heart is regular; no gallop or murmur. GI: Abdomen is soft and not tender. There is no palpable mass or visceromegaly. Neuro: There is no focal deficits. ASSESSMENT AND PLAN: Hepatic encephalopathy in a patient with liver cirrhosis. He was admitted with GI bleeding from esophageal varices. He received banding from GI service. He has not had any bleeding recently. He continues to have mild anemia and generalized weakness. We are offering him physical therapy. We would like him to go to [facility]. However, he has discharge that he participates at physical therapy sessions. His ammonia level from today is 71. We are hoping to bring it under 50-60 using rifaximin and lactulose. Hypertensive renal disease. Blood pressure is under control. We will continue Lopressor. He has CKD stage III. His last creatinine is 1.55. Type 2 diabetes mellitus. Seem to be under fair control. We will continue when necessary Humalog. COPD. Under control. He currently does not need any supplemental oxygen or nebulizer treatments. DISPOSITION: We are hoping that he will go to [facility]. - Exam Vitals: Temp Pulse Resp BP Pulse Ox 98.6 F 67 17 118/71 97 05/01/18 19:28 05/01/18 19:28 05/01/18 19:28 05/01/18 19:28 05/01/18 19:28 Exam: xx - Assessment and Plan (1) Hepatic encephalopathy Current Visit: Yes Status: Acute (2) Cirrhosis Current Visit: No Status: Chronic (3) Esophageal varices with bleeding Current Visit: Yes Status: Acute (4) Diabetes Current Visit: Yes Status: Acute (5) Hypertensive renal disease with renal failure Current Visit: Yes Status: Chronic (6) COPD (chronic obstructive pulmonary disease) Current Visit: Yes Status: Chronic (7) Hypothyroidism Current Visit: Yes Status: Chronic (8) Anemia Current Visit: Yes Status: Acute (9) Generalized weakness Current Visit: Yes Status: Acute - Time Spent with Patient Total time spent is greater than 50% in coordination of care (as documented) at patient's floor/unit and/or counseling patient: 25 - 35 minutes Plan of Care Discussed with: patient (and healthcare social worker..) Internal Medicine: Result - Labs CBC & Chem 7: 05/01/18 03:49 05/01/18 03:49 Labs: Short CBC 05/01/18 Range/Units 03:49 WBC 4.2 L (4.3-11.1) K/mcL Hgb 9.4 L (12.9-16.9) g/dL Hct 28.3 L (37.5-50.1) % Plt Count 59 L (140-400) K/mcL Neutrophils # 2.9 (1.6-8.9) K/mcL BMP 05/01/18 03:49 Sodium 138 Potassium 4.0 Chloride 110 H Carbon Dioxide 22 L BUN 24 H Creatinine 1.55 H Glucose 118 H Calcium 8.4 L - ABG Interpretation ABG results: PT/INR, D-dimer PT 12.6 Seconds (9.4-12.1) H 04/25/18 10:54 Consult Discharge Plan - Plan Referrals: Jose Real DO [Primary Care Provider] - (2) Cirrhosis Qualifiers: Hepatic cirrhosis type: unspecified hepatic cirrhosis Ascites presence: unspecified Qualified Code(s): K74.60 - Unspecified cirrhosis of liver (3) Esophageal varices with bleeding Qualifiers: Esophageal varices type: secondary Qualified Code(s): I85.11 - Secondary esophageal varices with bleeding (4) Diabetes Qualifiers: Diabetes mellitus type: type 2 Diabetes mellitus correction insulin use: without correction use Diabetes mellitus complication detail: with chronic kidney disease Chronic kidney disease stage: stage 3 (moderate) (8) Anemia Qualifiers: Anemia type: unspecified type Qualified Code(s): D64.9 - Anemia, unspecified
[2018-05-02] MEDS: Cholecalciferol (D-3) 1,000 UNIT TABLET PO SCH (08:53)
[2018-05-02] MEDS: Lactulose Oral Soln 20 GM/30 ML UDC PO SCH ×4 (08:53→21:50)
[2018-05-02] MEDS: Insulin LISPRO 300 UNITS/3 ML VIAL SQ SCH ×4 (12:00→21:52)
--- NOTE | 2018-05-02 16:38 | Internal Med Progress Note ---
Hospitalist Progress Note - Encounter Date of Encounter: 05/02/18 Time of Encounter: 16:29 - Subjective Interval History: SUBJECTIVE: The patient does not recognize me at all. He knows his first name and last name. Otherwise, he is disoriented. He does recognize his by name. He talked to her some today afternoon. According to his many of the things he is telling her does not make any sense. The patient does not voice any particular problems. He eats only small amounts of foods. He drinks fair amounts of fluids. He did some walking with physical therapy today morning. He made very short distances. OBJECTIVE: Skin: Free of rash and discoloration. ENMT: Oral/pharyngeal mucosa is normal in appearance. Eyes: Sclera is white. There is no discharge from eyes. Respiratory: Normal breath sounds; no crackles or wheezes. CV: Heart is regular; no gallop or murmur. GI: Abdomen is soft and not tender. There is no palpable mass or visceromegaly. Neuro: There is no focal deficits. ASSESSMENT AND PLAN: Hepatic encephalopathy in a patient with liver cirrhosis. 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 He received argon plasma coagulation. He has not had any bleeding recently. He continues to have mild anemia and generalized weakness. We are offering him physical therapy. We would like him to go to [facility]. The requirement is, that the patient actively participates with physical therapy. His ammonia level from yesterday was 71. I am ordering CBC, CMP and ammonia level tomorrow morning. He is taking rifaximin and lactulose. Hypertensive renal disease. Blood pressure is under control. We will continue Lopressor. He has CKD stage III. His last creatinine was 1.55. Type 2 diabetes mellitus. Seem to be under fair control. We will continue when necessary Humalog. COPD. Under control. He currently does not need any supplemental oxygen or nebulizer treatments. DISPOSITION: We are hoping that he will go to [facility] soon. - Exam Vitals: Temp Pulse Resp BP Pulse Ox 97.6 F 64 17 105/55 96 05/02/18 11:03 05/02/18 11:03 05/02/18 11:03 05/02/18 11:03 05/02/18 11:03 Exam: xx - Assessment and Plan (1) Hepatic encephalopathy Current Visit: Yes Status: Acute (2) Cirrhosis Current Visit: No Status: Chronic (3) Esophageal varices with bleeding Current Visit: Yes Status: Acute (4) Diabetes Current Visit: Yes Status: Acute (5) Hypertensive renal disease with renal failure Current Visit: Yes Status: Chronic (6) COPD (chronic obstructive pulmonary disease) Current Visit: Yes Status: Chronic (7) Hypothyroidism Current Visit: Yes Status: Chronic (8) Anemia Current Visit: Yes Status: Acute (9) Generalized weakness Current Visit: Yes Status: Acute - Time Spent with Patient Total time spent is greater than 50% in coordination of care (as documented) at patient's floor/unit and/or counseling patient: 25 - 35 minutes Plan of Care Discussed with: patient (and family..) Internal Medicine: Result - Labs CBC & Chem 7: 05/01/18 03:49 05/01/18 03:49 - ABG Interpretation ABG results: PT/INR, D-dimer PT 12.6 Seconds (9.4-12.1) H 04/25/18 10:54 Consult Discharge Plan - Plan Referrals: Jose Real DO [Primary Care Provider] - (2) Cirrhosis Qualifiers: Hepatic cirrhosis type: unspecified hepatic cirrhosis Ascites presence: unspecified Qualified Code(s): K74.60 - Unspecified cirrhosis of liver (3) Esophageal varices with bleeding Qualifiers: Esophageal varices type: secondary Qualified Code(s): I85.11 - Secondary esophageal varices with bleeding (4) Diabetes Qualifiers: Diabetes mellitus type: type 2 Diabetes mellitus machine long goods helper insulin use: without mcc use Diabetes mellitus complication detail: with chronic kidney disease Chronic kidney disease stage: stage 3 (moderate) (8) Anemia Qualifiers: Anemia type: unspecified type Qualified Code(s): D64.9 - Anemia, unspecified
[2018-05-03 06:08] LABS: Basophils % 0.6 %; Hemoglobin 9.4 g/dL (12.9-16.9); Immature Granulocytes % 0.3 % (0-4); Mean Corpuscular Volume 93.4 fL (83.0-100.0)
[2018-05-03 06:10] LABS: Eosinophils # 0.2 K/mcL (0.0-0.6); Eosinophils % 4.2 %; Hematocrit 28.3 % (37.5-50.1); Lymphocytes % 12.4 %; Mean Corpuscular HGB Conc 33.2 g/dL (31.6-35.5); Mean Platelet Volume 9.7 fL (9.4-12.4); Monocytes # 0.4 K/mcL (0.0-1.3); Monocytes % 11.5 %; Red Blood Count 3.03 M/mcL (4.19-5.50); Red Cell Distribution Width 15.7 % (11.5-14.5)
[2018-05-03 06:16] LABS: Lymphocytes # 0.5 K/mcL (0.6-4.6); Neutrophils # 2.6 K/mcL (1.6-8.9); Platelet Count 64 K/mcL (140-400)
[2018-05-03 06:36] LABS: Albumin 2.9 g/dL (3.5-5.7); Albumin/Globulin Ratio 1.4 (1.1-2.2); Bilirubin,Total 0.9 mg/dL (0.3-1.0); Calcium 8.5 mg/dL (8.6-10.3); Globulin 2.1 g/dL (2.4-3.5); Potassium 3.4 mEq/L (3.5-5.1)
[2018-05-03] MEDS: Insulin LISPRO 300 UNITS/3 ML VIAL SQ SCH ×4 (08:04→20:05)
[2018-05-03] MEDS: Lactulose Oral Soln 20 GM/30 ML UDC PO SCH ×4 (08:06→20:04)
[2018-05-03] MEDS: Cholecalciferol (D-3) 1,000 UNIT TABLET PO SCH (08:13)
--- NOTE | 2018-05-03 22:25 | Internal Med Progress Note ---
Hospitalist Progress Note - Encounter Date of Encounter: 05/03/18 Time of Encounter: 19:00 - Subjective Interval History: SUBJECTIVE: He is confused most of time. He did not follow commands from physical therapy today. The patient does not recognize me at all. He knows his first name and last name. Otherwise, he is disoriented. The patient does not voice any particular problems. He eats only small amounts of foods. He drinks fair amounts of fluids. Physical therapy did only active range of motion in all major joints today. He was not ambulating today. OBJECTIVE: Skin: Free of rash and discoloration. ENMT: Oral/pharyngeal mucosa is normal in appearance. Eyes: Sclera is white. There is no discharge from eyes. Respiratory: Normal breath sounds; no crackles or wheezes. CV: Heart is regular; no gallop or murmur. GI: Abdomen is soft and not tender. There is no palpable mass or visceromegaly. Neuro: There is no focal deficits. ASSESSMENT AND PLAN: Hepatic encephalopathy in a patient with liver cirrhosis. 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 He received argon plasma coagulation. He has not had any bleeding recently. He continues to have mild anemia and generalized weakness. We are offering him physical therapy. We would like him to go to [facility]. The requirement is, that the patient actively participates with physical therapy. His ammonia level is 51; with 71 yesterday. It does not correspond with improvements in his mental status. Hypertensive renal disease. Blood pressure is under control. We will continue Lopressor. He has CKD stage III. His creatinine from today is 1.41; 1.55 2 days ago. Type 2 diabetes mellitus. Seem to be under fair control. We will continue when necessary Humalog. COPD. Under control. He currently does not need any supplemental oxygen or nebulizer treatments. DISPOSITION: We are hoping, that he will go to [facility] soon. - Exam Vitals: Temp Pulse Resp BP Pulse Ox 98.2 F 71 17 123/55 91 05/03/18 20:22 05/03/18 20:22 05/03/18 20:22 05/03/18 20:22 05/03/18 20:22 Exam: xx - Assessment and Plan (1) Hepatic encephalopathy Current Visit: Yes Status: Acute (2) Cirrhosis Current Visit: No Status: Chronic (3) Esophageal varices with bleeding Current Visit: Yes Status: Acute (4) Diabetes Current Visit: Yes Status: Acute (5) Hypertensive renal disease with renal failure Current Visit: Yes Status: Chronic (6) COPD (chronic obstructive pulmonary disease) Current Visit: Yes Status: Chronic (7) Hypothyroidism Current Visit: Yes Status: Chronic (8) Anemia Current Visit: Yes Status: Acute (9) Generalized weakness Current Visit: Yes Status: Acute - Time Spent with Patient Total time spent is greater than 50% in coordination of care (as documented) at patient's floor/unit and/or counseling patient: 25 - 35 minutes Plan of Care Discussed with: patient (and social services specialist..) Internal Medicine: Result - Labs CBC & Chem 7: 05/03/18 05:55 05/03/18 05:55 Labs: Short CBC 05/03/18 Range/Units 05:55 WBC 3.6 L (4.3-11.1) K/mcL Hgb 9.4 L (12.9-16.9) g/dL Hct 28.3 L (37.5-50.1) % Plt Count 64 L (140-400) K/mcL Neutrophils # 2.6 (1.6-8.9) K/mcL BMP 05/03/18 05:55 Sodium 140 Potassium 3.4 L Chloride 113 H Carbon Dioxide 20 L BUN 21 Creatinine 1.41 H Glucose 124 H Calcium 8.5 L Liver Function 05/03/18 Range/Units 05:55 Total Bilirubin 0.9 (0.3-1.0) mg/dL AST 31 (13-39) Units/L ALT 16 (7-52) Units/L Alkaline Phosphatase 79 (34-104) Units/L Albumin 2.9 L (3.5-5.7) g/dL - ABG Interpretation ABG results: PT/INR, D-dimer PT 12.6 Seconds (9.4-12.1) H 04/25/18 10:54 Consult Discharge Plan - Plan Referrals: Jose Real, [Primary Care Provider] - (2) Cirrhosis Qualifiers: Hepatic cirrhosis type: unspecified hepatic cirrhosis Ascites presence: unspecified Qualified Code(s): K74.60 - Unspecified cirrhosis of liver (3) Esophageal varices with bleeding Qualifiers: Esophageal varices type: secondary Qualified Code(s): I85.11 - Secondary esophageal varices with bleeding (4) Diabetes Qualifiers: Diabetes mellitus type: type 2 Diabetes mellitus longterm insulin use: without longterm use Diabetes mellitus complication detail: with chronic kidney disease Chronic kidney disease stage: stage 3 (moderate) (8) Anemia Qualifiers: Anemia type: unspecified type Qualified Code(s): D64.9 - Anemia, unspecified
[2018-05-04] MEDS: Insulin LISPRO 300 UNITS/3 ML VIAL SQ SCH ×4 (08:24→23:01)
[2018-05-04] MEDS: Cholecalciferol (D-3) 1,000 UNIT TABLET PO SCH ×2 (08:35→08:47)
[2018-05-04] MEDS: Lactulose Oral Soln 20 GM/30 ML UDC PO SCH ×4 (08:36→20:51)
--- NOTE | 2018-05-04 22:42 | Internal Med Progress Note ---
Hospitalist Progress Note - Encounter Date of Encounter: 05/04/18 Time of Encounter: 19:00 - Subjective Interval History: SUBJECTIVE: Is pretty much the same; like yesterday. Confused most of time. Does not follow commands from physical therapy. He basically stays in bed all the time. He eats only small amounts of foods (occasionally). He drinks fair amounts of fluids. OBJECTIVE: Skin: Free of rash and discoloration. ENMT: Oral/pharyngeal mucosa is normal in appearance. Eyes: Sclera is white. There is no discharge from eyes. Respiratory: Normal breath sounds; no crackles or wheezes. CV: Heart is regular; no gallop or murmur. GI: Abdomen is soft and not tender. There is no palpable mass or visceromegaly. Neuro: There is no focal deficits. ASSESSMENT AND PLAN: Hepatic encephalopathy in a patient with liver cirrhosis. 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 He received argon plasma coagulation. He has not had any bleeding recently. He continues to have mild anemia and generalized weakness. We are offering him physical therapy. We would like him to go to [facility]. The requirement is, that the patient actively participates with physical therapy. His last ammonia level was 51; previously 71. He is on rifaximin and lactulose. Hypertensive renal disease. Blood pressure is under control. We will continue Lopressor. He has CKD stage III. Type 2 diabetes mellitus. Seem to be under fair control. We will continue when necessary Humalog. COPD. Under control. He currently does not need any supplemental oxygen or nebulizer treatments. DISPOSITION: We are hoping, that he will go to [facility] soon. - Exam Vitals: Temp Pulse Resp BP Pulse Ox 97.7 F 69 17 119/53 95 05/04/18 20:42 05/04/18 20:42 05/04/18 20:42 05/04/18 20:42 05/04/18 20:42 Exam: xx - Assessment and Plan (1) Hepatic encephalopathy Current Visit: Yes Status: Acute (2) Cirrhosis Current Visit: No Status: Chronic (3) Esophageal varices with bleeding Current Visit: Yes Status: Acute (4) Diabetes Current Visit: Yes Status: Acute (5) Hypertensive renal disease with renal failure Current Visit: Yes Status: Chronic (6) COPD (chronic obstructive pulmonary disease) Current Visit: Yes Status: Chronic (7) Hypothyroidism Current Visit: Yes Status: Chronic (8) Anemia Current Visit: Yes Status: Acute (9) Generalized weakness Current Visit: Yes Status: Acute - Time Spent with Patient Total time spent is greater than 50% in coordination of care (as documented) at patient's floor/unit and/or counseling patient: 25 - 35 minutes Plan of Care Discussed with: patient (and social workers..) Internal Medicine: Result - Labs CBC & Chem 7: 05/03/18 05:55 05/03/18 05:55 - ABG Interpretation ABG results: PT/INR, D-dimer PT 12.6 Seconds (9.4-12.1) H 04/25/18 10:54 Consult Discharge Plan - Plan Referrals: Jose Real DO [Primary Care Provider] - (2) Cirrhosis Qualifiers: Hepatic cirrhosis type: unspecified hepatic cirrhosis Ascites presence: unspecified Qualified Code(s): K74.60 - Unspecified cirrhosis of liver (3) Esophageal varices with bleeding Qualifiers: Esophageal varices type: secondary Qualified Code(s): I85.11 - Secondary esophageal varices with bleeding (4) Diabetes Qualifiers: Diabetes mellitus type: type 2 Diabetes mellitus intermediate frame tender insulin use: without mcfp use Diabetes mellitus complication detail: with chronic kidney disease Chronic kidney disease stage: stage 3 (moderate) (8) Anemia Qualifiers: Anemia type: unspecified type Qualified Code(s): D64.9 - Anemia, unspecified
[2018-05-05] MEDS: Cholecalciferol (D-3) 1,000 UNIT TABLET PO SCH (08:44)
[2018-05-05] MEDS: Lactulose Oral Soln 20 GM/30 ML UDC PO SCH ×4 (08:44→21:44)
[2018-05-05] MEDS: Insulin LISPRO 300 UNITS/3 ML VIAL SQ SCH ×4 (08:45→23:29)
[2018-05-05] MEDS ORDERED: 0.9 % Sodium Chloride 250 ML ONE (17:47)
--- NOTE | 2018-05-05 22:08 | Internal Med Progress Note ---
Hospitalist Progress Note - Encounter Date of Encounter: 05/05/18 Time of Encounter: 19:00 - Subjective Interval History: SUBJECTIVE: The patient continues to be confused; most of time. When he is not currently feels he is very demented. He eats only small amounts of fluids. He drinks fair amounts of liquids. OBJECTIVE: Skin: Free of rash and discoloration. ENMT: Oral/pharyngeal mucosa is normal in appearance. Eyes: Sclera is white. There is no discharge from eyes. Respiratory: Normal breath sounds; no crackles or wheezes. CV: Heart is regular; no gallop or murmur. GI: Abdomen is soft and not tender. There is no palpable mass or visceromegaly. Neuro: There is no focal deficits. ASSESSMENT AND PLAN: Hepatic encephalopathy in a patient with liver cirrhosis. 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 He received argon plasma coagulation. He has not had any bleeding recently. He continues to have mild anemia and generalized weakness. We are offering him physical therapy. We would like him to go to [facility]. The requirement is, that the patient actively participates with physical therapy. Another requirement is, that he can be managed without a sitter. His last ammonia level was 51. He is on rifaximin and lactulose. He has also underlying moderate to severe dementia. Hypertensive renal disease. Blood pressure is under control. We will continue Lopressor. He has CKD stage III. Type 2 diabetes mellitus. Seem to be under fair control. We will continue when necessary Humalog. COPD. Under control. He currently does not need any supplemental oxygen or nebulizer treatments. DISPOSITION: We are stopping his sitter. We will see if we can manage him without extra people involved. - Exam Vitals: Temp Pulse Resp BP Pulse Ox 98.5 F 68 18 120/67 97 05/05/18 20:38 05/05/18 20:38 05/05/18 20:38 05/05/18 20:38 05/05/18 20:38 Exam: xx - Assessment and Plan (1) Hepatic encephalopathy Current Visit: Yes Status: Acute (2) Cirrhosis Current Visit: No Status: Chronic (3) Dementia Current Visit: Yes Status: Acute (4) Esophageal varices with bleeding Current Visit: Yes Status: Acute (5) Diabetes Current Visit: Yes Status: Acute (6) Hypertensive renal disease with renal failure Current Visit: Yes Status: Chronic (7) COPD (chronic obstructive pulmonary disease) Current Visit: Yes Status: Chronic (8) Hypothyroidism Current Visit: Yes Status: Chronic (9) Anemia Current Visit: Yes Status: Acute (10) Generalized weakness Current Visit: Yes Status: Acute - Time Spent with Patient Total time spent is greater than 50% in coordination of care (as documented) at patient's floor/unit and/or counseling patient: 25 - 35 minutes Plan of Care Discussed with: nurse Internal Medicine: Result - Labs CBC & Chem 7: 05/03/18 05:55 05/03/18 05:55 - ABG Interpretation ABG results: PT/INR, D-dimer PT 12.6 Seconds (9.4-12.1) H 04/25/18 10:54 Consult Discharge Plan - Plan Referrals: Jose Real DO [Primary Care Provider] - (2) Cirrhosis Qualifiers: Hepatic cirrhosis type: unspecified hepatic cirrhosis Ascites presence: unspecified Qualified Code(s): K74.60 - Unspecified cirrhosis of liver (4) Esophageal varices with bleeding Qualifiers: Esophageal varices type: secondary Qualified Code(s): I85.11 - Secondary esophageal varices with bleeding (5) Diabetes Qualifiers: Diabetes mellitus type: type 2 Diabetes mellitus superintendent marine oil terminal insulin use: without superintendent marine oil terminal use Diabetes mellitus complication detail: with chronic kidney disease Chronic kidney disease stage: stage 3 (moderate) (9) Anemia Qualifiers: Anemia type: unspecified type Qualified Code(s): D64.9 - Anemia, unspecified
[2018-05-06] MEDS: Lactulose Oral Soln 20 GM/30 ML UDC PO SCH ×4 (07:59→21:05)
[2018-05-06] MEDS: Cholecalciferol (D-3) 1,000 UNIT TABLET PO SCH (07:59)
[2018-05-06] MEDS: Insulin LISPRO 300 UNITS/3 ML VIAL SQ SCH ×4 (09:16→21:07)
--- NOTE | 2018-05-06 14:52 | Internal Med Progress Note ---
Hospitalist Progress Note - Encounter Date of Encounter: 05/06/18 Time of Encounter: 14:49 - Subjective Interval History: SUBJECTIVE: The patient continues to be confused; most of time. When he is not currently feels he is very demented. He eats only small amounts of fluids. He drinks fair amounts of liquids. OBJECTIVE: Skin: Free of rash and discoloration. ENMT: Oral/pharyngeal mucosa is normal in appearance. Eyes: Sclera is white. There is no discharge from eyes. Respiratory: Normal breath sounds; no crackles or wheezes. CV: Heart is regular; no gallop or murmur. GI: Abdomen is soft and not tender. There is no palpable mass or visceromegaly. Neuro: There is no focal deficits. ASSESSMENT AND PLAN: Hepatic encephalopathy in a patient with liver cirrhosis. 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 He received argon plasma coagulation. He has not had any bleeding recently. He continues to have mild anemia and generalized weakness. We are offering him physical therapy. We would like him to go to [facility]. The requirement is, that the patient actively participates with physical therapy. Another requirement is, that he can be managed without a sitter. His last ammonia level was 51. He is on rifaximin and lactulose. He has also underlying moderate to severe dementia. Hypertensive renal disease. Blood pressure is under control. We will continue Lopressor. He has CKD stage III. Type 2 diabetes mellitus. Seem to be under fair control. We will continue when necessary Humalog. COPD. Under control. He currently does not need any supplemental oxygen or nebulizer treatments. DISPOSITION: We are stopping his sitter. We will see if we can manage him without extra people involved. - Exam Vitals: Temp Pulse Resp BP Pulse Ox 97.9 F 62 16 103/51 95 05/06/18 11:19 05/06/18 11:19 05/06/18 11:19 05/06/18 11:19 05/06/18 11:19 Exam: xx - Assessment and Plan (1) Hepatic encephalopathy Current Visit: Yes Status: Acute (2) Cirrhosis Current Visit: No Status: Chronic (3) Dementia Current Visit: Yes Status: Acute (4) Esophageal varices with bleeding Current Visit: Yes Status: Acute (5) Diabetes Current Visit: Yes Status: Acute (6) Hypertensive renal disease with renal failure Current Visit: Yes Status: Chronic (7) COPD (chronic obstructive pulmonary disease) Current Visit: Yes Status: Chronic (8) Hypothyroidism Current Visit: Yes Status: Chronic (9) Anemia Current Visit: Yes Status: Acute (10) Generalized weakness Current Visit: Yes Status: Acute - Time Spent with Patient Total time spent is greater than 50% in coordination of care (as documented) at patient's floor/unit and/or counseling patient: 25 - 35 minutes Plan of Care Discussed with: nurse Internal Medicine: Result - Labs CBC & Chem 7: 05/03/18 05:55 05/03/18 05:55 - ABG Interpretation ABG results: PT/INR, D-dimer PT 12.6 Seconds (9.4-12.1) H 04/25/18 10:54 Consult Discharge Plan - Plan Referrals: Jose Real DO [Primary Care Provider] - (2) Cirrhosis Qualifiers: Hepatic cirrhosis type: unspecified hepatic cirrhosis Ascites presence: unspecified Qualified Code(s): K74.60 - Unspecified cirrhosis of liver (4) Esophageal varices with bleeding Qualifiers: Esophageal varices type: secondary Qualified Code(s): I85.11 - Secondary esophageal varices with bleeding (5) Diabetes Qualifiers: Diabetes mellitus type: type 2 Diabetes mellitus petroleum terminal plant operator insulin use: without petroleum terminal plant operator use Diabetes mellitus complication detail: with chronic kidney disease Chronic kidney disease stage: stage 3 (moderate) (9) Anemia Qualifiers: Anemia type: unspecified type Qualified Code(s): D64.9 - Anemia, unspecified
[2018-05-07] MEDS: Lactulose Oral Soln 20 GM/30 ML UDC PO SCH ×3 (08:19→17:46)
[2018-05-07] MEDS: Cholecalciferol (D-3) 1,000 UNIT TABLET PO SCH (08:19)
[2018-05-07] MEDS: Insulin LISPRO 300 UNITS/3 ML VIAL SQ SCH ×3 (08:19→17:44)
[2018-05-07 15:42] VITALS: BP 108/66
--- NOTE | 2018-05-07 16:58 | Discharge Summary ---
Date of Encounter: 05/07/18 Time of Encounter: 16:56 - Discharge Diagnosis (1) Hepatic encephalopathy Priority: Primary Status: Acute (2) Cirrhosis Priority: Primary Status: Chronic Qualifiers: Hepatic cirrhosis type: unspecified hepatic cirrhosis Ascites presence: unspecified Qualified Code(s): K74.60 - Unspecified cirrhosis of liver (3) Dementia Priority: Primary Status: Chronic Qualifiers: Dementia type: unspecified type Dementia behavioral disturbance: without behavioral disturbance Qualified Code(s): F03.90 - Unspecified dementia without behavioral disturbance (4) Esophageal varices with bleeding Priority: Primary Status: Acute Qualifiers: Esophageal varices type: secondary Qualified Code(s): I85.11 - Secondary esophageal varices with bleeding (5) Diabetes Priority: Secondary Status: Chronic Qualifiers: Diabetes mellitus type: type 2 Diabetes mellitus electrical supervisor insulin use: without usp use Diabetes mellitus complication detail: with chronic kidney disease Chronic kidney disease stage: stage 3 (moderate) Qualified Code(s): E11.22 - Type 2 diabetes mellitus with diabetic chronic kidney disease ; N18.3 - Chronic kidney disease, stage 3 (moderate) (6) Hypertensive renal disease with renal failure Priority: Secondary Status: Chronic (7) COPD (chronic obstructive pulmonary disease) Priority: Secondary Status: Chronic Qualifiers: COPD type: unspecified COPD Qualified Code(s): J44.9 - Chronic obstructive pulmonary disease, unspecified (8) Hypothyroidism Priority: Secondary Status: Chronic Qualifiers: Hypothyroidism type: acquired Qualified Code(s): E03.9 - Hypothyroidism, unspecified (9) Anemia Priority: Secondary Status: Chronic Qualifiers: Anemia type: unspecified type Qualified Code(s): D64.9 - Anemia, unspecified (10) Generalized weakness Priority: Primary Status: Acute Hospital course: HOSPITAL COURSE: This is a 72-year-old man. He was brought to the hospital complaining of headache and generalized weakness. He has underlying liver cirrhosis. We learned about his black in color bowel movements happening to him in the last days/weeks preceding this admission. Hemoglobin was 7.8 with a creatinine of 2.8. Hemoccult of stool was positive. Pro time INR was 1.1. The patient was presented to the GI service. They proceeded with upper endoscopy. They found a bleeding esophageal varices. They treated them with laser surgery. The patient did not require any blood transfusions. Elevated into this hospitalization the patient developed a confusion. We found him mildly elevated ammonia of 71. Rifaximin has been added to his lactulose. His ammonia decreased to 51. However, the patient continues to be confused. It looks like it is mostly due to his underlying dementia, rather than due to hepatic encephalopathy. CONDITION AT DISCHARGE: The patient is confused most of time. Occasionally, he listens to commands from physical therapy. He eats small amounts of foods. He drinks fair amounts of fluids. However, he recovered from acute kidney injury observed at admission. His last creatinine was 1.41 (4 days ago). Associated with her hemoglobin of 9.4, WBC of 3.6 thousand and a platelet count of 64,000. His glucose control is fine. He gets diabetic diet and when necessary Humalog injections. Previously he was on by mouth metformin. Skin: Free of rash and discoloration. Respiratory: Normal breath sounds with no crackles and wheezes bilaterally. CV: Heart is regular with no gallop or murmur. GI: Abdomen is flat and soft with no palpable mass or visceromegaly. Neuro exam: There is no focal deficits. Normal speech, swallowing and gait. SEE DISCHARGE ORDERS/MEDICATIONS.. We discharge him to a detention facility. Discharge discussed with: patient, nurse - Time Spent with Patient Total time spent providing and/or coordinating discharge services: Greater than 30 minutes - Discharge Medications Prescriptions: Spironolactone 50 mg PO BID #60 tablet Home Medications: Aspirin Enteric Coated [Aspirin EC] 81 mg PO DAILY 07/10/15 [History] Furosemide [Lasix] 40 mg PO BID 07/10/15 [History] Levothyroxine [Synthroid] 125 mcg PO 0630 07/10/15 [History] Metoprolol [Lopressor] 25 mg PO BID 07/10/15 [History] Potassium Chloride 20 meq PO BID 07/10/15 [History] Pantoprazole Sodium [Protonix] 40 mg PO DAILY 01/26/17 [History] Albuterol Sulfate [Proair Hfa] 1 puff IH Q4H PRN 02/24/17 [History] Cholecalciferol (D-3) [Vitamin D] 1,000 unit PO DAILY 02/24/17 [History] Ferrous Sulfate [Iron] 325 mg PO BID 02/24/17 [History] Sertraline [Zoloft] 50 mg PO DAILY 04/25/18 [History] DiphenhydraMINE [Benadryl] 25 mg PO HS PRN capsule 05/07/18 [Rx] Insulin LISPRO [HumaLOG] 0 units SQ HS vial 05/07/18 [Rx] Insulin LISPRO [HumaLOG] 0 units SQ TIDAC vial 05/07/18 [Rx] Lactulose 10 gm PO QID udc 05/07/18 [Rx] Rifaximin [Xifaxan] 550 mg PO BID tablet 05/07/18 [Rx] Spironolactone 50 mg PO BID #60 tablet 05/07/18 [Rx] Allergies/Adverse Reactions: 3 Allergy/AdvReac Type Severity Reaction Status Date / Time No Known Allergies Allergy Verified 04/25/18 10:43 Date of admission: 04/30/18 14:38 Primary care physician: Jose Real Discharging clinician: Mehdi Clemens Anticipated date of discharge: 05/07/18 - Constitutional Vitals: Temp Pulse Resp BP Pulse Ox 98.1 F 57 20 108/66 97 05/07/18 15:37 05/07/18 15:37 05/07/18 15:37 05/07/18 15:37 05/07/18 15:37 General appearance: Present: A&O X 1, no acute distress, obese Exam: xx - Patient Status Disposition: Transfer SNF Condition: Fair Functional capacity at discharge: wheelchair bound Overall status at discharge: patient is not back to baseline - Discharge Instructions Follow Up With: [facility] [Provider Group] (please call and schedule a hospital follow up ) Jose Real DO [Primary Care Provider] - (please follow up with the [facility] pcp) - Diet and Activity Activity: ambulate only with your walker (needs assistance, when walking..), as per physical therapy Diet: diabetic diet - VTE Reasons for not Prescribing Prophylaxis: Medical contraindication (bleed from esophageal varices..) Deep Vein Thrombosis/Pulmonary Embolism Present on Admission: No
--- NOTE | 2018-05-07 17:15 | Physician Discharge Referral ---
ExtendedCare Referral Info Transfer To: [facility] Provider in Charge: Isaura Clemens MD Provider in Charge after Transfer: Other (an F physician) - Diagnosis (1) Hepatic encephalopathy Priority: Primary Status: Acute (2) Cirrhosis Priority: Primary Status: Chronic (3) Dementia Priority: Primary Status: Chronic (4) Esophageal varices with bleeding Priority: Primary Status: Acute (5) Diabetes Priority: Secondary Status: Chronic (6) Hypertensive renal disease with renal failure Priority: Secondary Status: Chronic (7) COPD (chronic obstructive pulmonary disease) Priority: Secondary Status: Chronic (8) Hypothyroidism Priority: Secondary Status: Chronic (9) Anemia Priority: Secondary Status: Chronic (10) Generalized weakness Priority: Secondary Status: Acute Prognosis: Fair Aware of Diagnosis: Family Aware of Prognosis: Family - Transfer Medications Prescriptions: Spironolactone 50 mg PO BID #60 tablet Home Medications: Aspirin Enteric Coated [Aspirin EC] 81 mg PO DAILY 07/10/15 [History] Furosemide [Lasix] 40 mg PO BID 07/10/15 [History] Levothyroxine [Synthroid] 125 mcg PO 0630 07/10/15 [History] Metoprolol [Lopressor] 25 mg PO BID 07/10/15 [History] Potassium Chloride 20 meq PO BID 07/10/15 [History] Pantoprazole Sodium [Protonix] 40 mg PO DAILY 01/26/17 [History] Albuterol Sulfate [Proair Hfa] 1 puff IH Q4H PRN 02/24/17 [History] Cholecalciferol (D-3) [Vitamin D] 1,000 unit PO DAILY 02/24/17 [History] Ferrous Sulfate [Iron] 325 mg PO BID 02/24/17 [History] Sertraline [Zoloft] 50 mg PO DAILY 04/25/18 [History] DiphenhydraMINE [Benadryl] 25 mg PO HS PRN capsule 05/07/18 [Rx] Insulin LISPRO [HumaLOG] 0 units SQ HS vial 05/07/18 [Rx] Insulin LISPRO [HumaLOG] 0 units SQ TIDAC vial 05/07/18 [Rx] Lactulose 10 gm PO QID udc 05/07/18 [Rx] Rifaximin [Xifaxan] 550 mg PO BID tablet 05/07/18 [Rx] Spironolactone 50 mg PO BID #60 tablet 05/07/18 [Rx] Allergies/Adverse Reactions: 3 Allergy/AdvReac Type Severity Reaction Status Date / Time No Known Allergies Allergy Verified 04/25/18 10:43 - Respiratory Orders None Smoking Cessation: Smoking cessation has been advised. For more information, call the [place] Tobacco Quit Line at 6-183-XLFH-NOW. - Mobility Orders Ambulate (with a walker/assistance..), Bedrest - Diet Orders No Concentrated Sweets CERTIFICATION: I certify that the transfer of the above named patient to an Extended Care Facility is necessary for the continuing treatment of the diagnosis listed. The above information is true and accurate reflection of patient's current condition. Confidential - Redisclosure prohibited without a patient's written consent.
== END 2018-05-07 17:58 | DRG 377 ==
LOC: EMEROOARM 10:38 → 2ANU 10:38 → SUATTDRO 14:32 → 2ANU 15:42 → SUATTDRO 04-30 14:38
PROVIDERS: ADMIT Internal Medicine; ATTEND Internal Medicine